=== PATIENT | female | born 1950 | race Caucasian/White ===

== ENCOUNTER 2017-06-04 15:25 | Inpatient (IN) | payer MEDICARE, MEDICAID ==
[~2017-06-04] VITALS: Ht 170.2 cm; Wt 93.2 kg
[~2017-06-04 15:25] MED LIST: ADV50250 IH; ALBU2.5V12 NEB; APIX5TAB3 PO; CARV-50 PO; DIGO125T97 PO; DILT-35 PO; DOCU-28 PO; FURO40TA4 PO; LEVA15HF4 IH; LEVO25TA2 PO; METF500T4 PO; NIT5P TD; POTA8TAB46 PO; PROM25TA14 PO; SPIIN INH; THEO300T22 PO
[2017-06-04] MEDS ORDERED: levoFLOXACIN-Levaquin 500mg/D5 100 ML IV ONE (15:55)
[2017-06-04] MEDS ORDERED: diltiazem 5mg/ml 5ml inj. IV ONE (15:55)
[2017-06-04] MEDS ORDERED: cefTRIAXone 1g/NS 100ml IVPB 100 ML IV ONE (15:55)
[2017-06-04] MEDS ORDERED: magnesium 2GM in 50ml NS 50 ML IV ONE (15:55)
[2017-06-04] MEDS ORDERED: ipratropium/albuterol 3ml nebule NEB ONE (15:55)
[2017-06-04] MEDS ORDERED: normal saline 1000ML IV soln IVB ONE (15:55)
[2017-06-04] MEDS ORDERED: methylPREDNISolone sod succ 125mg/2ml vial IV ONE (15:55)
[2017-06-04] MEDS ORDERED: diltiazem 30mg tablet PO ONE (15:55)
[2017-06-04 16:36] LABS: INR 1.2 INR; PARTIAL THROMBOPLASTIN TIME 21 SECONDS (22-32); PROTHROMBIN TIME 12.4 SECONDS (9.0-12.0)
[2017-06-04 16:38] LABS: ALANINE AMINOTRANSFERASE 19 U/L (12-78); ALBUMIN 2.9 G/DL (3.4-5.0); ALBUMIN/GLOBULIN RATIO 0.8 (1.1-1.5); ALKALINE PHOSPHATASE 58 IU/L (46-116); ANION GAP 8 (8-16); ASPARTATE AMINO TRANSFERASE 17 U/L (10-37); BILIRUBIN,TOTAL 1.3 MG/DL (0.1-1.0); BLOOD UREA NITROGEN 21 MG/DL (7-18); BUN/CREATININE RATIO 15.7 (6.6-38.0); CALCIUM 8.8 MG/DL (8.5-10.1); CHLORIDE 104 MMOL/L (99-107); CREATININE 1.34 MG/DL (0.40-0.90); GLUCOSE 152 MG/DL (70-104); POTASSIUM 4.5 MMOL/L (3.5-5.1); SODIUM 138 MMOL/L (135-145); TOTAL CARBON DIOXIDE 26.1 MMOL/L (24-32); TOTAL PROTEIN 6.5 G/DL (6.4-8.2); eGFR 39 ML/MIN
[2017-06-04 16:46] LABS: MAGNESIUM 1.9 MG/DL (1.5-2.4); TROPONIN I < 0.04 NG/ML (0.0-0.05)
[2017-06-04] MEDS ORDERED: digoxin 250mcg/ml 2ml ampule IV ONE (17:15)
[2017-06-04 17:38] LABS: BASOPHILS % (AUTO) 0.1 % (0-1); EOSINOPHILS % (AUTO) 0 % (0-6); HEMOGLOBIN 12.7 g/dl (12.0-16.0); LYMPHOCYTES # (AUTO) 1.2 X10'3 (1.1-4.8); LYMPHOCYTES % (AUTO) 5.1 % (21-51); MEAN CORPUSCULAR HEMOGLOBIN 28.5 PG (27.0-31.0); MEAN CORPUSCULAR HGB CONC 32.6 % (33.0-36.5); MEAN CORPUSCULAR VOLUME 87.7 FL (78-98); MEAN PLATELET VOLUME 8.1 FL (7.4-10.4); NEUTROPHILS % (AUTO) 90.8 % (42-75); PLATELET COUNT 219 X10'3 (140-440); RED BLOOD COUNT 4.45 X10'6 (4.20-5.60); RED CELL DISTRIBUTION WIDTH 18.2 % (11.5-14.5); WHITE BLOOD COUNT 24.2 X10'3 (4.5-11.0)
[2017-06-04 18:02] LABS: ANISOCYTOSIS 2+; PLATELET ESTIMATE NORMAL; TOTAL CELLS COUNTED 100
[2017-06-04 18:03] LABS: POLYCHROMASIA FEW
[2017-06-04 19:54] LABS: CLARITY,URINE Cloudy (Clear); COLOR,URINE Dark Yellow (Yellow); GLUCOSE, URINE Negative (Neg); KETONES,URINE Negative (Neg); LEUKOCYTE ESTERASE ,URINE Small (Neg); NITRITES, URINE Negative (Neg); OCCULT BLOOD,URINE Small (Neg); PROTEIN,URINE 100 mg/dl (Neg)
[2017-06-04 19:59] LABS: UA COLLECTION TYPE FOLEY CATH
[2017-06-04] MEDS ORDERED: FLUT1DIS7 INH (20:23)
[2017-06-04] MEDS ORDERED: ALBU8HFA PO (20:25)
[2017-06-04] MEDS ORDERED: BENZ-16 PO (20:27)
[2017-06-04] MEDS ORDERED: GABA-532 PO (20:30)
[2017-06-04] MEDS ORDERED: IBUP-1985 PO (20:31)
[2017-06-04] MEDS ORDERED: LOSA50TA3 PO (20:33)
[2017-06-04] MEDS ORDERED: PANT-47 PO (20:35)
[2017-06-04] MEDS ORDERED: RANI-366 PO (20:36)
[2017-06-04] MEDS ORDERED: SPIR25TA3 PO (20:37)
[2017-06-04] MEDS ORDERED: BUDE10.22 INH (20:38)
[2017-06-04] MEDS ORDERED: temazepam 15mg capsule PO PRN (21:00)
[2017-06-04] MEDS ORDERED: benzonatate 100mg capsule PO PRN (21:15)
[2017-06-04] MEDS ORDERED: diphenhydrAMINE 50 mg/ml inj IV PRN (21:20)
[2017-06-04] MEDS ORDERED: bisacodyl 10mg suppository rectal RC PRN (21:20)
[2017-06-04] MEDS ORDERED: glucagon, human recombinant 1mg kit SUBCUT PRN (21:20)
[2017-06-04] MEDS ORDERED: dextrose ORAL solution 15 GM/59 ML bottle PO PRN ×2 (21:20)
[2017-06-04] MEDS ORDERED: MESSAGE TO PHARMACY PO ONE (21:20)
[2017-06-04] MEDS ORDERED: acetaminophen 325mg tablet PO PRN ×2 (21:20)
[2017-06-04] MEDS ORDERED: dextrose 50%-water 50ml dispensing syringe IV PRN ×2 (21:20)
[2017-06-04] MEDS ORDERED: HYDROcodone/acetaminophen 5mg/325mg tablet PO PRN (21:20)
[2017-06-04] MEDS ORDERED: magnesium hydroxide 30ml (MOM) UD suspension PO PRN (21:20)
[2017-06-04] MEDS ORDERED: diphenhydrAMINE 25mg capsule PO PRN (21:20)
[2017-06-04] MEDS ORDERED: metoclopramide 5 mg/ml inj IV PRN (21:20)
[2017-06-04] MEDS ORDERED: HYDROmorphone 1 mg/ml syringe IV PRN ×2 (21:20)
[2017-06-04] MEDS ORDERED: mag hydrox/Alum hydrox/simeth 30ml oral suspension PO PRN (21:20)
[2017-06-04] MEDS ORDERED: ondansetron/PF 4mg/2ml inj IV PRN (21:20)
[2017-06-04] MEDS: pantoprazole 40mg Tablet.DR PO SCH (21:25)
[2017-06-04 21:50] LABS: BACTERIA,URINE 2+ /HPF (Neg); MUCUS STRANDS MODERATE /LPF (Neg); SQUAMOUS EPITHELIAL CELL,UR FEW /LPF (FEW)
[2017-06-04 23:19] VITALS: BP 132/73
[2017-06-04] MEDS: methylPREDNISolone sod succ 125mg/2ml vial IV SCH (23:59)
[2017-06-05 00:08] LABS: HEMOGLOBIN A1C 6.4 % (4.5-6.2)
[2017-06-05] MEDS: albuterol 2.5 MG/3 ML nebule NEB SCH ×4 (00:16→21:05)
[2017-06-05 00:35] LABS: ABG BASE EXCESS -1.4 mmol/L (-2.0-3.0); ABG HCO3 22.6 mmol/L (22.0-26.0); ABG OXYGEN SATURATION 95.3 % (95-98); ABG PCO2 (T) 34.3 mmHg (32.0-45.0); ABG PH (T) 7.432 (7.350-7.450); ABG PO2 (T) 72.2 mmHg (83-108); ALLEN'S TEST Positive; FCOHb 0.2 % (0.5-1.5); FLOW 2 L/min; FMetHb 0.2 % (0.3-1.12); FO2Hb 94.9 % (94-100); PATIENT TEMPERATURE 36.1; TOTAL HEMOGLOBIN 12.7 G/dl (12.0-16.0)
[2017-06-05 06:00] VITALS: BP 106/73
[2017-06-05 06:40] LABS: BASOPHILS % (AUTO) 0 % (0-1); EOSINOPHILS % (AUTO) 0 % (0-6); HEMATOCRIT 35.7 % (35.0-45.0); HEMOGLOBIN 11.6 g/dl (12.0-16.0); LYMPHOCYTES # (AUTO) 0.6 X10'3 (1.1-4.8); LYMPHOCYTES % (AUTO) 3.8 % (21-51); MEAN CORPUSCULAR HEMOGLOBIN 28.4 PG (27.0-31.0); MEAN CORPUSCULAR HGB CONC 32.5 % (33.0-36.5); MEAN CORPUSCULAR VOLUME 87.4 FL (78-98); MEAN PLATELET VOLUME 8.2 FL (7.4-10.4); MONOCYTES # (AUTO) 0.4 X10'3 (0-0.9); MONOCYTES % (AUTO) 2.7 % (2-12); NEUTROPHILS # (AUTO) 13.8 X10'3 (1.8-7.7); NEUTROPHILS % (AUTO) 93.5 % (42-75); PLATELET COUNT 189 X10'3 (140-440); RED BLOOD COUNT 4.09 X10'6 (4.20-5.60); RED CELL DISTRIBUTION WIDTH 17.6 % (11.5-14.5); WHITE BLOOD COUNT 14.8 X10'3 (4.5-11.0)
[2017-06-05 06:52] LABS: ALANINE AMINOTRANSFERASE 23 U/L (12-78); ALBUMIN 2.5 G/DL (3.4-5.0); ALBUMIN/GLOBULIN RATIO 0.7 (1.1-1.5); ALKALINE PHOSPHATASE 54 IU/L (46-116); ANION GAP 8 (8-16); ASPARTATE AMINO TRANSFERASE 17 U/L (10-37); BILIRUBIN,TOTAL 0.7 MG/DL (0.1-1.0); BLOOD UREA NITROGEN 29 MG/DL (7-18); BUN/CREATININE RATIO 19.1 (6.6-38.0); CALCIUM 9.3 MG/DL (8.5-10.1); CHLORIDE 104 MMOL/L (99-107); CREATININE 1.52 MG/DL (0.40-0.90); GLUCOSE 197 MG/DL (70-104); POTASSIUM 4.4 MMOL/L (3.5-5.1); SODIUM 137 MMOL/L (135-145); TOTAL CARBON DIOXIDE 24.8 MMOL/L (24-32); TOTAL PROTEIN 6.2 G/DL (6.4-8.2); eGFR 34 ML/MIN
[2017-06-05] MEDS: losartan 50mg tablet PO SCH (07:39)
[2017-06-05] MEDS: levoTHYROXINE 25mcg tablet PO SCH (07:50)
[2017-06-05] MEDS: gabapentin 300mg capsule PO SCH ×4 (07:50→23:58)
[2017-06-05] MEDS: digoxin 125mcg (0.125mg) tablet PO SCH (07:51)
[2017-06-05] MEDS: famotidine 20mg tablet PO SCH ×3 (07:51→22:18)
[2017-06-05] MEDS: docusate sod 100mg capsule PO SCH ×2 (07:52→22:18)
[2017-06-05] MEDS: diltiazem CD 120mg capsule (once-daily) PO SCH (07:52)
[2017-06-05] MEDS: carVEDilol 12.5mg tablet PO SCH ×3 (07:52→22:00)
[2017-06-05] MEDS: pantoprazole 40mg Tablet.DR PO SCH ×2 (07:53→22:34)
[2017-06-05] MEDS: furosemide 10 MG/1 ML 10ml inj IV SCH ×2 (07:54→22:00)
[2017-06-05] MEDS: methylPREDNISolone sod succ 125mg/2ml vial IV SCH ×3 (07:55→23:57)
[2017-06-05] MEDS: apixaban 5mg tablet PO SCH ×3 (07:57→22:18)
[2017-06-05] MEDS: nitroGLYCERIN 0.2mg/hour patch TD SCH (08:00)
[2017-06-05] MEDS ORDERED: non-formulary drug (Ranitidine Hcl (Zantac) 150 MG) PO SCH (08:00)
[2017-06-05 10:00] VITALS: BP 111/65
[2017-06-05] MEDS: insulin Lispro (HumaLOG) vial - multi-dose SQ SCH ×3 (10:00→19:57)
[2017-06-05] MEDS ORDERED: pneumococcal 23-VAL P-sac vacc 25 mcg/0.5ml vial IMVAC ONE (11:10)
[2017-06-05] MEDS: HYDROcodone/acetaminophen 10/325mg tab PO PRN (14:59)
[2017-06-05 18:00] VITALS: BP 83/57
[2017-06-05] MEDS: Insulin Detemir pen SQ SCH (21:00)
[2017-06-05 22:00] VITALS: BP 101/54
[2017-06-06 05:27] LABS: BASOPHILS % (AUTO) 0 % (0-1); EOSINOPHILS # (AUTO) 0.2 X10'3 (0-0.9); EOSINOPHILS % (AUTO) 1.2 % (0-6); HEMATOCRIT 35.3 % (35.0-45.0); HEMOGLOBIN 11.3 g/dl (12.0-16.0); LYMPHOCYTES # (AUTO) 0.6 X10'3 (1.1-4.8); LYMPHOCYTES % (AUTO) 4.4 % (21-51); MEAN CORPUSCULAR HEMOGLOBIN 28.1 PG (27.0-31.0); MEAN CORPUSCULAR HGB CONC 31.9 % (33.0-36.5); MEAN CORPUSCULAR VOLUME 88.1 FL (78-98); MEAN PLATELET VOLUME 8.5 FL (7.4-10.4); MONOCYTES # (AUTO) 0.3 X10'3 (0-0.9); MONOCYTES % (AUTO) 2.2 % (2-12); NEUTROPHILS # (AUTO) 12.9 X10'3 (1.8-7.7); NEUTROPHILS % (AUTO) 92.2 % (42-75); PLATELET COUNT 179 X10'3 (140-440); RED CELL DISTRIBUTION WIDTH 17.8 % (11.5-14.5)
[2017-06-06 05:45] LABS: ALANINE AMINOTRANSFERASE 84 U/L (12-78); ALBUMIN 2.6 G/DL (3.4-5.0); ALBUMIN/GLOBULIN RATIO 0.7 (1.1-1.5); ALKALINE PHOSPHATASE 56 IU/L (46-116); ANION GAP 12 (8-16); ASPARTATE AMINO TRANSFERASE 59 U/L (10-37); BILIRUBIN,TOTAL 0.5 MG/DL (0.1-1.0); BLOOD UREA NITROGEN 58 MG/DL (7-18); BUN/CREATININE RATIO 29.7 (6.6-38.0); CALCIUM 9.4 MG/DL (8.5-10.1); CHLORIDE 98 MMOL/L (99-107); CREATININE 1.95 MG/DL (0.40-0.90); GLUCOSE 240 MG/DL (70-104); POTASSIUM 4.4 MMOL/L (3.5-5.1); SODIUM 133 MMOL/L (135-145); TOTAL CARBON DIOXIDE 22.7 MMOL/L (24-32); TOTAL PROTEIN 6.2 G/DL (6.4-8.2); eGFR 25 ML/MIN
[2017-06-06] MEDS: levoFLOXACIN-Levaquin 750MG/D5 150 ML IV SCH (08:27)
[2017-06-06] MEDS: methylPREDNISolone sod succ 125mg/2ml vial IV SCH ×3 (08:30→23:52)
[2017-06-06] MEDS: gabapentin 300mg capsule PO SCH ×3 (08:30→23:52)
[2017-06-06] MEDS: docusate sod 100mg capsule PO SCH ×2 (08:30→21:08)
[2017-06-06] MEDS: pantoprazole 40mg Tablet.DR PO SCH (08:30)
[2017-06-06] MEDS: famotidine 20mg tablet PO SCH (08:30)
[2017-06-06] MEDS: levoTHYROXINE 25mcg tablet PO SCH (08:30)
[2017-06-06] MEDS: apixaban 5mg tablet PO SCH ×2 (08:31→21:08)
[2017-06-06] MEDS: digoxin 125mcg (0.125mg) tablet PO SCH (08:31)
[2017-06-06] MEDS: furosemide 10 MG/1 ML 10ml inj IV SCH ×2 (08:32→20:00)
[2017-06-06] MEDS: albuterol 2.5 MG/3 ML nebule NEB SCH ×3 (08:49→21:00)
[2017-06-06] MEDS: insulin Lispro (HumaLOG) vial - multi-dose SQ SCH ×3 (09:29→19:19)
[2017-06-06] MEDS: diltiazem CD 120mg capsule (once-daily) PO SCH (10:38)
[2017-06-06] MEDS: carVEDilol 12.5mg tablet PO SCH ×2 (10:38→20:00)
[2017-06-06] MEDS: losartan 50mg tablet PO SCH (10:38)
[2017-06-06] MEDS: nitroGLYCERIN 0.2mg/hour patch TD SCH (10:39)
[2017-06-06 11:00] VITALS: BP 131/79
[2017-06-06] MEDS ORDERED: codeine/proMETHazine 5ml UD syrup PO ONE (13:45)
[2017-06-06] MEDS: lactobacillus rhamnosus 10,000 MMU CELLS/CAPSULE PO SCH (17:31)
[2017-06-06 18:00] VITALS: BP 80/63
[2017-06-06] MEDS: codeine/proMETHazine 5ml UD syrup PO PRN (19:20)
[2017-06-06] MEDS: ipratropium/albuterol 3ml nebule NEB SCH ×2 (19:45→23:14)
[2017-06-06 21:00] VITALS: BP 83/46
[2017-06-06 21:01] VITALS: BP 94/53
[2017-06-06] MEDS: Insulin Detemir pen SQ SCH (21:11)
[2017-06-06 22:00] VITALS: BP 91/63
[2017-06-07] MEDS: ipratropium/albuterol 3ml nebule NEB SCH ×6 (03:31→23:32)
[2017-06-07 06:00] VITALS: BP 100/64
[2017-06-07 06:57] LABS: BASOPHILS % (AUTO) 0.1 % (0-1); EOSINOPHILS # (AUTO) 0.2 X10'3 (0-0.9); EOSINOPHILS % (AUTO) 1.4 % (0-6); HEMATOCRIT 33.7 % (35.0-45.0); HEMOGLOBIN 10.9 g/dl (12.0-16.0); LYMPHOCYTES # (AUTO) 0.3 X10'3 (1.1-4.8); MEAN CORPUSCULAR HEMOGLOBIN 28.1 PG (27.0-31.0); MEAN CORPUSCULAR HGB CONC 32.3 % (33.0-36.5); MEAN CORPUSCULAR VOLUME 87.1 FL (78-98); MEAN PLATELET VOLUME 8.7 FL (7.4-10.4); MONOCYTES # (AUTO) 0.2 X10'3 (0-0.9); MONOCYTES % (AUTO) 1.4 % (2-12); NEUTROPHILS % (AUTO) 94.1 % (42-75); PLATELET COUNT 205 X10'3 (140-440); RED BLOOD COUNT 3.87 X10'6 (4.20-5.60); RED CELL DISTRIBUTION WIDTH 17.6 % (11.5-14.5); WHITE BLOOD COUNT 11.7 X10'3 (4.5-11.0)
[2017-06-07 07:38] LABS: ALANINE AMINOTRANSFERASE 68 U/L (12-78); ALBUMIN 2.4 G/DL (3.4-5.0); ALBUMIN/GLOBULIN RATIO 0.7 (1.1-1.5); ALKALINE PHOSPHATASE 51 IU/L (46-116); ANION GAP 11 (8-16); ASPARTATE AMINO TRANSFERASE 19 U/L (10-37); BILIRUBIN,TOTAL 0.4 MG/DL (0.1-1.0); BLOOD UREA NITROGEN 71 MG/DL (7-18); BUN/CREATININE RATIO 38.8 (6.6-38.0); CALCIUM 9.1 MG/DL (8.5-10.1); CHLORIDE 100 MMOL/L (99-107); CREATININE 1.83 MG/DL (0.40-0.90); GLUCOSE 189 MG/DL (70-104); POTASSIUM 4.5 MMOL/L (3.5-5.1); SODIUM 134 MMOL/L (135-145); TOTAL CARBON DIOXIDE 23.4 MMOL/L (24-32); TOTAL PROTEIN 5.9 G/DL (6.4-8.2); eGFR 27 ML/MIN
[2017-06-07] MEDS: levoTHYROXINE 25mcg tablet PO SCH (07:42)
[2017-06-07] MEDS: gabapentin 300mg capsule PO SCH ×2 (07:42→17:11)
[2017-06-07] MEDS: docusate sod 100mg capsule PO SCH ×2 (07:42→19:55)
[2017-06-07] MEDS: lactobacillus rhamnosus 10,000 MMU CELLS/CAPSULE PO SCH ×2 (07:42→17:11)
[2017-06-07] MEDS: apixaban 5mg tablet PO SCH ×2 (07:42→19:55)
[2017-06-07] MEDS: methylPREDNISolone sod succ 125mg/2ml vial IV SCH ×2 (07:42→17:10)
[2017-06-07] MEDS: azithromycin/NS 500mg/250ml 250 ML IV SCH (07:42)
[2017-06-07] MEDS: digoxin 125mcg (0.125mg) tablet PO SCH (07:43)
[2017-06-07] MEDS: nitroGLYCERIN 0.2mg/hour patch TD SCH (11:22)
[2017-06-07] MEDS: diltiazem CD 120mg capsule (once-daily) PO SCH (11:23)
[2017-06-07] MEDS: furosemide 10 MG/1 ML 10ml inj IV SCH ×2 (11:23→19:57)
[2017-06-07] MEDS: carVEDilol 12.5mg tablet PO SCH ×2 (11:23→19:55)
[2017-06-07] MEDS: losartan 50mg tablet PO SCH (11:23)
[2017-06-07 11:25] VITALS: BP 100/61
[2017-06-07] MEDS: albuterol 2.5 MG/3 ML nebule NEB SCH (12:50)
[2017-06-07] MEDS: insulin Lispro (HumaLOG) vial - multi-dose SQ SCH ×2 (13:35→18:56)
[2017-06-07 18:30] VITALS: BP 110/58
[2017-06-07 19:45] VITALS: BP 106/57
[2017-06-07] MEDS: codeine/proMETHazine 5ml UD syrup PO PRN (19:57)
[2017-06-07] MEDS: Insulin Detemir pen SQ SCH (21:12)
[2017-06-07 22:00] VITALS: BP 106/72
[2017-06-08] MEDS: methylPREDNISolone sod succ 125mg/2ml vial IV SCH ×3 (00:02→20:15)
[2017-06-08] MEDS: gabapentin 300mg capsule PO SCH ×4 (00:02→23:01)
[2017-06-08] MEDS: ipratropium/albuterol 3ml nebule NEB SCH ×5 (03:39→20:12)
[2017-06-08 05:00] VITALS: BP 103/62
[2017-06-08 07:17] LABS: BASOPHILS % (AUTO) 0 % (0-1); EOSINOPHILS # (AUTO) 0.1 X10'3 (0-0.9); EOSINOPHILS % (AUTO) 1.1 % (0-6); HEMATOCRIT 37.3 % (35.0-45.0); HEMOGLOBIN 11.9 g/dl (12.0-16.0); LYMPHOCYTES # (AUTO) 0.4 X10'3 (1.1-4.8); LYMPHOCYTES % (AUTO) 4.3 % (21-51); MEAN CORPUSCULAR VOLUME 87.5 FL (78-98); MEAN PLATELET VOLUME 8.5 FL (7.4-10.4); MONOCYTES # (AUTO) 0.2 X10'3 (0-0.9); MONOCYTES % (AUTO) 1.8 % (2-12); NEUTROPHILS # (AUTO) 8.8 X10'3 (1.8-7.7); NEUTROPHILS % (AUTO) 92.8 % (42-75); PLATELET COUNT 224 X10'3 (140-440); RED BLOOD COUNT 4.26 X10'6 (4.20-5.60); RED CELL DISTRIBUTION WIDTH 17.5 % (11.5-14.5); WHITE BLOOD COUNT 9.5 X10'3 (4.5-11.0)
[2017-06-08 07:41] LABS: ALANINE AMINOTRANSFERASE 61 U/L (12-78); ALBUMIN 2.6 G/DL (3.4-5.0); ALBUMIN/GLOBULIN RATIO 0.7 (1.1-1.5); ALKALINE PHOSPHATASE 51 IU/L (46-116); ANION GAP 6 (8-16); ASPARTATE AMINO TRANSFERASE 14 U/L (10-37); BILIRUBIN,TOTAL 0.3 MG/DL (0.1-1.0); BLOOD UREA NITROGEN 68 MG/DL (7-18); BUN/CREATININE RATIO 42.5 (6.6-38.0); CALCIUM 9.2 MG/DL (8.5-10.1); CHLORIDE 102 MMOL/L (99-107); GLUCOSE 165 MG/DL (70-104); POTASSIUM 4.5 MMOL/L (3.5-5.1); SODIUM 137 MMOL/L (135-145); TOTAL PROTEIN 6.1 G/DL (6.4-8.2); eGFR 32 ML/MIN
[2017-06-08] MEDS: azithromycin/NS 500mg/250ml 250 ML IV SCH (08:00)
[2017-06-08] MEDS: insulin Lispro (HumaLOG) vial - multi-dose SQ SCH ×3 (09:05→19:04)
[2017-06-08] MEDS: levoTHYROXINE 25mcg tablet PO SCH (09:09)
[2017-06-08] MEDS: lactobacillus rhamnosus 10,000 MMU CELLS/CAPSULE PO SCH ×2 (09:09→17:11)
[2017-06-08] MEDS: losartan 50mg tablet PO SCH (09:09)
[2017-06-08] MEDS: diltiazem CD 120mg capsule (once-daily) PO SCH (09:10)
[2017-06-08] MEDS: docusate sod 100mg capsule PO SCH ×2 (09:10→20:15)
[2017-06-08] MEDS: carVEDilol 12.5mg tablet PO SCH ×2 (09:10→20:15)
[2017-06-08] MEDS: digoxin 125mcg (0.125mg) tablet PO SCH (09:10)
[2017-06-08] MEDS: apixaban 5mg tablet PO SCH ×2 (09:10→20:15)
[2017-06-08] MEDS: nitroGLYCERIN 0.2mg/hour patch TD SCH (09:11)
[2017-06-08] MEDS: furosemide 10 MG/1 ML 10ml inj IV SCH ×2 (09:12→20:17)
[2017-06-08 10:00] VITALS: BP 115/65
[2017-06-08] MEDS: levoFLOXACIN-Levaquin 750MG/D5 150 ML IV SCH (10:22)
[2017-06-08] MEDS: HYDROcodone/acetaminophen 10/325mg tab PO PRN ×2 (14:32→21:06)
[2017-06-08 18:30] VITALS: BP 99/58
[2017-06-08 20:14] VITALS: BP 105/58
[2017-06-08] MEDS: Insulin Detemir pen SQ SCH (21:10)
[2017-06-08 22:00] VITALS: BP 92/54
[2017-06-08] MEDS: codeine/proMETHazine 5ml UD syrup PO PRN (22:59)
[2017-06-09 02:18] LABS: CLARITY,URINE Clear (Clear); GLUCOSE, URINE Negative (Neg); KETONES,URINE Negative (Neg); LEUKOCYTE ESTERASE ,URINE Negative (Neg); NITRITES, URINE Negative (Neg); OCCULT BLOOD,URINE Negative (Neg); PROTEIN,URINE Negative (Neg); UROBILINOGEN,URINE 0.2 E.U/dL (0.2-1.0)
[2017-06-09 02:27] LABS: COLOR,URINE STRAW (Yellow); UA COLLECTION TYPE CLN CATCH MIDSTREAM
[2017-06-09] MEDS: ipratropium/albuterol 3ml nebule NEB SCH ×4 (02:50→10:45)
[2017-06-09 05:00] VITALS: BP 104/50
[2017-06-09 07:04] LABS: BASOPHILS % (AUTO) 0.1 % (0-1); EOSINOPHILS % (AUTO) 0 % (0-6); HEMATOCRIT 37.8 % (35.0-45.0); HEMOGLOBIN 12.1 g/dl (12.0-16.0); LYMPHOCYTES # (AUTO) 0.4 X10'3 (1.1-4.8); LYMPHOCYTES % (AUTO) 4.5 % (21-51); MEAN CORPUSCULAR HEMOGLOBIN 27.9 PG (27.0-31.0); MEAN CORPUSCULAR VOLUME 87.2 FL (78-98); MEAN PLATELET VOLUME 7.9 FL (7.4-10.4); MONOCYTES # (AUTO) 0.2 X10'3 (0-0.9); MONOCYTES % (AUTO) 1.7 % (2-12); NEUTROPHILS # (AUTO) 9.2 X10'3 (1.8-7.7); NEUTROPHILS % (AUTO) 93.7 % (42-75); PLATELET COUNT 236 X10'3 (140-440); RED BLOOD COUNT 4.33 X10'6 (4.20-5.60); RED CELL DISTRIBUTION WIDTH 17.4 % (11.5-14.5); WHITE BLOOD COUNT 9.8 X10'3 (4.5-11.0)
[2017-06-09 07:49] LABS: ALANINE AMINOTRANSFERASE 49 U/L (12-78); ALBUMIN 2.5 G/DL (3.4-5.0); ALBUMIN/GLOBULIN RATIO 0.7 (1.1-1.5); ALKALINE PHOSPHATASE 48 IU/L (46-116); ANION GAP 4 (8-16); ASPARTATE AMINO TRANSFERASE 16 U/L (10-37); BILIRUBIN,TOTAL 0.3 MG/DL (0.1-1.0); BLOOD UREA NITROGEN 62 MG/DL (7-18); BUN/CREATININE RATIO 46.6 (6.6-38.0); CALCIUM 8.8 MG/DL (8.5-10.1); CHLORIDE 101 MMOL/L (99-107); CREATININE 1.33 MG/DL (0.40-0.90); GLUCOSE 126 MG/DL (70-104); POTASSIUM 4.1 MMOL/L (3.5-5.1); SODIUM 137 MMOL/L (135-145); TOTAL PROTEIN 5.9 G/DL (6.4-8.2); eGFR 40 ML/MIN
[2017-06-09] MEDS: methylPREDNISolone sod succ 125mg/2ml vial IV SCH ×2 (07:55→12:35)
[2017-06-09] MEDS: docusate sod 100mg capsule PO SCH (07:56)
[2017-06-09] MEDS: apixaban 5mg tablet PO SCH (07:56)
[2017-06-09] MEDS: levoTHYROXINE 25mcg tablet PO SCH (07:56)
[2017-06-09] MEDS: azithromycin/NS 500mg/250ml 250 ML IV SCH (07:56)
[2017-06-09] MEDS: lactobacillus rhamnosus 10,000 MMU CELLS/CAPSULE PO SCH (07:56)
[2017-06-09] MEDS: furosemide 10 MG/1 ML 10ml inj IV SCH (07:56)
[2017-06-09] MEDS: digoxin 125mcg (0.125mg) tablet PO SCH (07:57)
[2017-06-09] MEDS: HYDROcodone/acetaminophen 10/325mg tab PO PRN (07:57)
[2017-06-09] MEDS: gabapentin 300mg capsule PO SCH (07:57)
[2017-06-09] MEDS: codeine/proMETHazine 5ml UD syrup PO PRN (07:57)
[2017-06-09] MEDS: diltiazem CD 120mg capsule (once-daily) PO SCH (07:58)
[2017-06-09] MEDS: carVEDilol 12.5mg tablet PO SCH (08:00)
[2017-06-09] MEDS: nitroGLYCERIN 0.2mg/hour patch TD SCH (08:00)
[2017-06-09] MEDS: losartan 50mg tablet PO SCH (08:00)
[2017-06-09] MEDS: insulin Lispro (HumaLOG) vial - multi-dose SQ SCH ×2 (09:22→13:41)
[2017-06-09 10:00] VITALS: BP 126/71
== END 2017-06-09 14:05 | DRG 871 ==
LOC: ER 15:25 → ED HOLD 21:17 → ORTHO 4S 22:37
PROVIDERS: ADMIT Family Medicine; ATTEND Family Medicine
DX: A41.9 Sepsis, unspecified organism (principal); I50.23 Acute on chronic systolic (congestive) heart failure; N17.9 Acute kidney failure, unspecified; I48.91 Unspecified atrial fibrillation; I11.0 Hypertensive heart disease with heart failure; J18.1 Lobar pneumonia, unspecified organism; J44.0 Chronic obstructive pulmonary disease with (acute) lower respiratory infection; J44.1 Chronic obstructive pulmonary disease with (acute) exacerbation; N39.0 Urinary tract infection, site not specified; E86.0 Dehydration; E11.9 Type 2 diabetes mellitus without complications; E03.9 Hypothyroidism, unspecified; I25.10 Atherosclerotic heart disease of native coronary artery without angina pectoris; E78.00 Pure hypercholesterolemia, unspecified; R09.02 Hypoxemia; Z90.49 Acquired absence of other specified parts of digestive tract; Z90.710 Acquired absence of both cervix and uterus; Z95.0 Presence of cardiac pacemaker; Z88.6 Allergy status to analgesic agent; Z88.0 Allergy status to penicillin; Z88.8 Allergy status to other drugs, medicaments and biological substances; Z91.018 Allergy to other foods; Z91.048 Other nonmedicinal substance allergy status; Z79.899 Other long term (current) drug therapy; Z28.21 Immunization not carried out because of patient refusal; Z87.891 Personal history of nicotine dependence
CPT/HCPCS: 36415; 36600; 71010; 71250; 80053; 80162; 81001; 81003; 82803; 82948; 83036; 83605; 83735; 83880; 84145; 84484; 85018; 85025; 85610; 85730; 87070; 87088; 93005; 94640; 94760; 96365; 96366; 96368; 96375; 97110; 97116; 97162; 99285; J0456; J0696; J1160; J1940; J1956; J2270; J2405; J2930; J3475; J3490; J7030

== ENCOUNTER 2018-04-25 19:25 | Inpatient (IN) | payer MEDICARE, MEDICAID ==
[~2018-04-25] VITALS: Ht 160 cm; Wt 104.0 kg
[~2018-04-25 19:25] MED LIST changes: -ADV50250 IH; -ALBU2.5V12 NEB; -CARV-50 PO; -DIGO125T97 PO; -DILT-35 PO; +DILT120C51 PO; -DOCU-28 PO; +DOCU100T PO; +GABA-532 PO; +HYDR-4383 PO; -LEVA15HF4 IH; -LEVO25TA2 PO; +LEVO50TA8 PO; +LISI2.5T2 PO; +LORA0.5T PO; +METF500T PO; -METF500T4 PO; +PANT40TA4 PO; +POTA10TA19 PO; -POTA8TAB46 PO; -PROM25TA14 PO; -SPIIN INH; +SPIR25TA5 PO; +THEO100C PO; -THEO300T22 PO
[2018-04-25] MEDS ORDERED: ipratropium/albuterol 3ml nebule NEB ONE (19:35)
[2018-04-25] MEDS ORDERED: albuterol 2.5 MG/3 ML nebule CONTNEB PRN (19:35)
[2018-04-25] MEDS ORDERED: methylPREDNISolone sod succ 125mg/2ml vial IV ONE (19:35)
[2018-04-25] MEDS ORDERED: normal saline 1000ML IV soln IVB ONE (19:35)
[2018-04-25] MEDS ORDERED: albuterol 2.5 MG/3 ML nebule ONE (19:37)
[2018-04-25 19:47] LABS: BASOPHILS % (AUTO) 0.4 % (0-1); EOSINOPHILS # (AUTO) 0.1 X10'3 (0-0.9); EOSINOPHILS % (AUTO) 1.6 % (0-6); HEMATOCRIT 38.6 % (35.0-45.0); HEMOGLOBIN 12.2 g/dl (12.0-16.0); LYMPHOCYTES # (AUTO) 1.7 X10'3 (1.1-4.8); LYMPHOCYTES % (AUTO) 30.6 % (21-51); MEAN CORPUSCULAR HEMOGLOBIN 25.8 PG (27.0-31.0); MEAN CORPUSCULAR HGB CONC 31.6 % (33.0-36.5); MEAN CORPUSCULAR VOLUME 81.8 FL (78-98); MEAN PLATELET VOLUME 7.7 FL (7.4-10.4); MONOCYTES # (AUTO) 0.6 X10'3 (0-0.9); MONOCYTES % (AUTO) 10.9 % (2-12); NEUTROPHILS # (AUTO) 3.1 X10'3 (1.8-7.7); NEUTROPHILS % (AUTO) 56.5 % (42-75); PLATELET COUNT 236 X10'3 (140-440); RED BLOOD COUNT 4.72 X10'6 (4.20-5.60); RED CELL DISTRIBUTION WIDTH 17.5 % (11.5-14.5); WHITE BLOOD COUNT 5.4 X10'3 (4.5-11.0)
[2018-04-25] MEDS ORDERED: magnesium 2GM in 50ml NS 50 ML IV ONE (19:55)
[2018-04-25 20:14] LABS: ALANINE AMINOTRANSFERASE 23 U/L (12-78); ALBUMIN 3.5 G/DL (3.4-5.0); ALBUMIN/GLOBULIN RATIO 0.9 (1.1-1.5); ALKALINE PHOSPHATASE 100 IU/L (46-116); ANION GAP 6 (8-16); ASPARTATE AMINO TRANSFERASE 18 U/L (10-37); BILIRUBIN,TOTAL 0.4 MG/DL (0.1-1.0); BLOOD UREA NITROGEN 22 MG/DL (7-18); CALCIUM 8.8 MG/DL (8.5-10.1); CHLORIDE 105 MMOL/L (99-107); CREATININE 1.16 MG/DL (0.40-0.90); GLUCOSE 111 MG/DL (70-104); POTASSIUM 4.2 MMOL/L (3.5-5.1); SODIUM 142 MMOL/L (135-145); TOTAL PROTEIN 7.4 G/DL (6.4-8.2); eGFR 46 ML/MIN
[2018-04-25] MEDS ORDERED: temazepam 15mg capsule PO PRN (21:00)
[2018-04-25] MEDS ORDERED: levoFLOXACIN-Levaquin 750MG/D5 150 ML IV STA (21:03)
[2018-04-25] MEDS ORDERED: furosemide 10 MG/1 ML 10ml inj IV ONE (21:05)
[2018-04-25] MEDS ORDERED: LORazepam 0.5 MG tablet PO PRN (21:05)
[2018-04-25 21:15] LABS: ABG BASE EXCESS 1.2 mmol/L (-2.0-3.0); ABG OXYGEN SATURATION 98.9 % (95-98); ABG PCO2 (T) 42.3 mmHg (32.0-45.0); ABG PH (T) 7.407 (7.350-7.450); ABG PO2 (T) 159.8 mmHg (83-108); FCOHb 0.3 % (0.5-1.5); FLOW 8 L/min; FMetHb 0.2 % (0.3-1.12); FO2Hb 98.4 % (94-100); PATIENT TEMPERATURE 37.2; TOTAL HEMOGLOBIN 12.5 G/dl (12.0-16.0)
[2018-04-25] MEDS ORDERED: morphine 2 MG/ML inj. syringe IV PRN (21:25)
[2018-04-25] MEDS ORDERED: metoclopramide 5 mg/ml inj IV PRN (21:25)
[2018-04-25] MEDS ORDERED: HYDROcodone/acetaminophen 10/325mg tab PO PRN (21:25)
[2018-04-25] MEDS ORDERED: bisacodyl 10mg suppository rectal RC PRN (21:25)
[2018-04-25] MEDS ORDERED: HYDROmorphone 1 mg/ml syringe IV PRN (21:25)
[2018-04-25] MEDS ORDERED: acetaminophen 325mg tablet PO PRN ×2 (21:25)
[2018-04-25] MEDS ORDERED: magnesium hydroxide 30ml (MOM) UD suspension PO PRN (21:25)
[2018-04-25] MEDS ORDERED: acetaminophen 650mg rectal suppository RC PRN (21:25)
[2018-04-25] MEDS ORDERED: mag hydrox/Alum hydrox/simeth 30ml oral suspension PO PRN (21:25)
[2018-04-25] MEDS ORDERED: diphenhydrAMINE 50 mg/ml inj IV PRN (21:25)
[2018-04-25] MEDS ORDERED: glucagon, human recombinant 1mg kit SUBCUT PRN (21:35)
[2018-04-25] MEDS ORDERED: MESSAGE TO PHARMACY PO ONE (21:35)
[2018-04-25] MEDS ORDERED: dextrose ORAL solution 15 GM/59 ML bottle PO PRN ×2 (21:35)
[2018-04-25] MEDS ORDERED: dextrose 50%-water 50ml dispensing syringe IV PRN ×2 (21:35)
[2018-04-25 21:48] LABS: MAGNESIUM 2.2 MG/DL (1.5-2.4); PHOSPHORUS 4.2 MG/DL (2.3-4.5)
[2018-04-25 21:49] LABS: HEMOGLOBIN A1C 5.8 % (4.5-6.2)
[2018-04-25 23:40] VITALS: BP 124/81
[2018-04-26 03:00] LABS: ALANINE AMINOTRANSFERASE 21 U/L (12-78); ALBUMIN 3.1 G/DL (3.4-5.0); ALBUMIN/GLOBULIN RATIO 0.8 (1.1-1.5); ALKALINE PHOSPHATASE 96 IU/L (46-116); ANION GAP 11 (8-16); BILIRUBIN,TOTAL 0.3 MG/DL (0.1-1.0); BLOOD UREA NITROGEN 21 MG/DL (7-18); BUN/CREATININE RATIO 14.9 (6.6-38.0); CALCIUM 8.5 MG/DL (8.5-10.1); CHLORIDE 102 MMOL/L (99-107); CREATININE 1.41 MG/DL (0.40-0.90); GLUCOSE 264 MG/DL (70-104); SODIUM 138 MMOL/L (135-145); TOTAL CARBON DIOXIDE 25.5 MMOL/L (24-32); eGFR 37 ML/MIN
[2018-04-26 03:04] LABS: ASPARTATE AMINO TRANSFERASE 27 U/L (10-37); POTASSIUM 3.6 MMOL/L (3.5-5.1)
[2018-04-26 03:08] LABS: BASOPHILS % (AUTO) 0 % (0-1); EOSINOPHILS % (AUTO) 0 % (0-6); HEMATOCRIT 34.9 % (35.0-45.0); HEMOGLOBIN 11.2 g/dl (12.0-16.0); LYMPHOCYTES # (AUTO) 0.2 X10'3 (1.1-4.8); LYMPHOCYTES % (AUTO) 4.9 % (21-51); MEAN CORPUSCULAR HEMOGLOBIN 26.3 PG (27.0-31.0); MEAN CORPUSCULAR HGB CONC 32.3 % (33.0-36.5); MEAN CORPUSCULAR VOLUME 81.6 FL (78-98); MEAN PLATELET VOLUME 8.1 FL (7.4-10.4); NEUTROPHILS # (AUTO) 3.9 X10'3 (1.8-7.7); NEUTROPHILS % (AUTO) 94.1 % (42-75); PLATELET COUNT 195 X10'3 (140-440); RED BLOOD COUNT 4.27 X10'6 (4.20-5.60); RED CELL DISTRIBUTION WIDTH 16.8 % (11.5-14.5); WHITE BLOOD COUNT 4.2 X10'3 (4.5-11.0)
[2018-04-26 06:18] LABS: INR 1.1 INR; PARTIAL THROMBOPLASTIN TIME 27 SECONDS (22-32)
[2018-04-26 07:00] VITALS: BP 112/60
[2018-04-26] MEDS ORDERED: levoFLOXACIN-Levaquin 500mg/D5 100 ML IV SCH (08:00)
[2018-04-26] MEDS ORDERED: DILTIAZEM HCL PO SCH (08:00)
[2018-04-26] MEDS ORDERED: non-formulary drug (Levothyroxine Sodium 1 TAB) PO SCH (08:00)
[2018-04-26] MEDS: spironolactone 25 MG tablet PO SCH (08:08)
[2018-04-26] MEDS: docusate sod 100mg capsule PO SCH ×2 (08:09→19:36)
[2018-04-26] MEDS: gabapentin 300mg capsule PO SCH ×2 (08:09→19:36)
[2018-04-26] MEDS: apixaban 5mg tablet PO SCH ×2 (08:09→19:35)
[2018-04-26] MEDS: pantoprazole 40mg Tablet.DR PO SCH ×2 (08:09→17:03)
[2018-04-26] MEDS: diltiazem CD 180mg cap (once-daily) PO SCH (08:10)
[2018-04-26] MEDS: nitroGLYCERIN 0.2mg/hour patch TD SCH (08:13)
[2018-04-26] MEDS: methylPREDNISolone sod succ 125mg/2ml vial IV SCH ×2 (08:13→19:39)
[2018-04-26] MEDS: furosemide 10 MG/1 ML 10ml inj IV SCH ×2 (08:16→19:37)
[2018-04-26] MEDS: levoTHYROXINE 25mcg tablet PO SCH (08:26)
[2018-04-26] MEDS ORDERED: HYDROcodone/acetaminophen 5mg/325mg tablet PO PRN (08:35)
[2018-04-26] MEDS: ipratropium/albuterol 3ml nebule NEB PRN ×3 (09:26→19:03)
[2018-04-26 13:25] VITALS: BP 102/61
[2018-04-26 18:00] VITALS: BP 112/54
[2018-04-26] MEDS: insulin Lispro (HumaLOG) vial - multi-dose SQ SCH (19:32)
[2018-04-26] MEDS: potassium chloride 8mEq ER tablet PO SCH (19:35)
[2018-04-26] MEDS ORDERED: metFORMIN 500mg tablet PO SCH (20:00)
[2018-04-26] MEDS: lisinopril 2.5mg tablet PO SCH (21:25)
[2018-04-27] VITALS: BP 103/52
[2018-04-27 05:43] LABS: ALANINE AMINOTRANSFERASE 17 U/L (12-78); ALBUMIN/GLOBULIN RATIO 0.8 (1.1-1.5); ALKALINE PHOSPHATASE 87 IU/L (46-116); ANION GAP 10 (8-16); ASPARTATE AMINO TRANSFERASE 14 U/L (10-37); BILIRUBIN,TOTAL 0.2 MG/DL (0.1-1.0); BLOOD UREA NITROGEN 27 MG/DL (7-18); BUN/CREATININE RATIO 22.5 (6.6-38.0); CALCIUM 8.6 MG/DL (8.5-10.1); CHLORIDE 102 MMOL/L (99-107); GLUCOSE 197 MG/DL (70-104); POTASSIUM 3.6 MMOL/L (3.5-5.1); SODIUM 140 MMOL/L (135-145); TOTAL CARBON DIOXIDE 27.9 MMOL/L (24-32); TOTAL PROTEIN 6.6 G/DL (6.4-8.2); eGFR 44 ML/MIN
[2018-04-27 05:55] LABS: BASOPHILS % (AUTO) 0 % (0-1); EOSINOPHILS # (AUTO) 0.1 X10'3 (0-0.9); EOSINOPHILS % (AUTO) 0.7 % (0-6); HEMOGLOBIN 10.9 g/dl (12.0-16.0); LYMPHOCYTES # (AUTO) 0.4 X10'3 (1.1-4.8); LYMPHOCYTES % (AUTO) 4.6 % (21-51); MEAN CORPUSCULAR HEMOGLOBIN 26.4 PG (27.0-31.0); MEAN CORPUSCULAR HGB CONC 32.2 % (33.0-36.5); MEAN CORPUSCULAR VOLUME 81.9 FL (78-98); MEAN PLATELET VOLUME 7.9 FL (7.4-10.4); MONOCYTES # (AUTO) 0.1 X10'3 (0-0.9); MONOCYTES % (AUTO) 1.4 % (2-12); NEUTROPHILS # (AUTO) 8.7 X10'3 (1.8-7.7); NEUTROPHILS % (AUTO) 93.3 % (42-75); PLATELET COUNT 189 X10'3 (140-440); RED BLOOD COUNT 4.15 X10'6 (4.20-5.60); RED CELL DISTRIBUTION WIDTH 17.1 % (11.5-14.5); WHITE BLOOD COUNT 9.3 X10'3 (4.5-11.0)
[2018-04-27 07:00] VITALS: BP 108/53
[2018-04-27] MEDS ORDERED: levoFLOXACIN-Levaquin 250mg/D5 50 ML IV SCH (08:00)
[2018-04-27] MEDS: theophylline anhydrous 100mg ER capsule 24-hour PO SCH (08:48)
[2018-04-27] MEDS: spironolactone 25 MG tablet PO SCH (08:50)
[2018-04-27] MEDS: gabapentin 300mg capsule PO SCH ×2 (08:50→19:26)
[2018-04-27] MEDS: docusate sod 100mg capsule PO SCH ×2 (08:51→19:26)
[2018-04-27] MEDS: potassium chloride 8mEq ER tablet PO SCH ×2 (08:51→19:26)
[2018-04-27] MEDS: apixaban 5mg tablet PO SCH ×2 (08:51→19:26)
[2018-04-27] MEDS: ondansetron/PF 4mg/2ml inj IV PRN ×2 (08:52→19:26)
[2018-04-27] MEDS: furosemide 10 MG/1 ML 10ml inj IV SCH ×2 (08:55→20:00)
[2018-04-27] MEDS: pantoprazole 40mg Tablet.DR PO SCH ×2 (09:02→16:39)
[2018-04-27] MEDS: levoTHYROXINE 25mcg tablet PO SCH (09:03)
[2018-04-27] MEDS: methylPREDNISolone sod succ 125mg/2ml vial IV SCH ×2 (09:13→19:26)
[2018-04-27] MEDS: insulin Lispro (HumaLOG) vial - multi-dose SQ SCH ×3 (09:29→18:47)
[2018-04-27] MEDS: diltiazem CD 180mg cap (once-daily) PO SCH (10:35)
[2018-04-27] MEDS: nitroGLYCERIN 0.2mg/hour patch TD SCH (10:36)
[2018-04-27 11:53] VITALS: BP 98/64
[2018-04-27] MEDS: benzocaine/menthol oral lozeng 1 EACH BOX MM PRN ×3 (12:04→19:27)
[2018-04-27 12:41] VITALS: BP 109/69
[2018-04-27 18:00] VITALS: BP 110/50
[2018-04-27] MEDS: lisinopril 2.5mg tablet PO SCH (22:29)
[2018-04-28] VITALS: BP 101/54
[2018-04-28 07:00] VITALS: BP 120/63
[2018-04-28] MEDS: ipratropium/albuterol 3ml nebule NEB PRN (07:22)
[2018-04-28 07:47] LABS: BASOPHILS % (AUTO) 0 % (0-1); EOSINOPHILS # (AUTO) 0.1 X10'3 (0-0.9); EOSINOPHILS % (AUTO) 1.1 % (0-6); HEMATOCRIT 35.5 % (35.0-45.0); HEMOGLOBIN 11.2 g/dl (12.0-16.0); LYMPHOCYTES # (AUTO) 0.5 X10'3 (1.1-4.8); LYMPHOCYTES % (AUTO) 5.6 % (21-51); MEAN CORPUSCULAR HEMOGLOBIN 25.8 PG (27.0-31.0); MEAN CORPUSCULAR HGB CONC 31.6 % (33.0-36.5); MEAN CORPUSCULAR VOLUME 81.7 FL (78-98); MEAN PLATELET VOLUME 7.7 FL (7.4-10.4); MONOCYTES # (AUTO) 0.1 X10'3 (0-0.9); MONOCYTES % (AUTO) 1.2 % (2-12); NEUTROPHILS # (AUTO) 8.2 X10'3 (1.8-7.7); NEUTROPHILS % (AUTO) 92.1 % (42-75); PLATELET COUNT 204 X10'3 (140-440); RED BLOOD COUNT 4.35 X10'6 (4.20-5.60); RED CELL DISTRIBUTION WIDTH 17.1 % (11.5-14.5); WHITE BLOOD COUNT 8.9 X10'3 (4.5-11.0)
[2018-04-28] MEDS: theophylline anhydrous 100mg ER capsule 24-hour PO SCH (08:00)
[2018-04-28 08:04] LABS: ALANINE AMINOTRANSFERASE 33 U/L (12-78); ALBUMIN 3.2 G/DL (3.4-5.0); ALBUMIN/GLOBULIN RATIO 0.9 (1.1-1.5); ALKALINE PHOSPHATASE 77 IU/L (46-116); ANION GAP 6 (8-16); ASPARTATE AMINO TRANSFERASE 24 U/L (10-37); BILIRUBIN,TOTAL 0.3 MG/DL (0.1-1.0); BLOOD UREA NITROGEN 36 MG/DL (7-18); BUN/CREATININE RATIO 28.6 (6.6-38.0); CHLORIDE 102 MMOL/L (99-107); CREATININE 1.26 MG/DL (0.40-0.90); GLUCOSE 164 MG/DL (70-104); POTASSIUM 4.6 MMOL/L (3.5-5.1); SODIUM 139 MMOL/L (135-145); TOTAL CARBON DIOXIDE 30.7 MMOL/L (24-32); TOTAL PROTEIN 6.7 G/DL (6.4-8.2); eGFR 42 ML/MIN
[2018-04-28] MEDS: levoTHYROXINE 25mcg tablet PO SCH (08:25)
[2018-04-28] MEDS: docusate sod 100mg capsule PO SCH ×2 (08:26→19:44)
[2018-04-28] MEDS: potassium chloride 8mEq ER tablet PO SCH ×2 (08:26→19:45)
[2018-04-28] MEDS: apixaban 5mg tablet PO SCH ×2 (08:26→19:45)
[2018-04-28] MEDS: pantoprazole 40mg Tablet.DR PO SCH ×2 (08:26→17:34)
[2018-04-28] MEDS: gabapentin 300mg capsule PO SCH ×2 (08:27→19:45)
[2018-04-28] MEDS: diltiazem CD 180mg cap (once-daily) PO SCH (08:28)
[2018-04-28] MEDS: methylPREDNISolone sod succ 125mg/2ml vial IV SCH (08:29)
[2018-04-28] MEDS: spironolactone 25 MG tablet PO SCH (08:40)
[2018-04-28] MEDS: furosemide 10 MG/1 ML 10ml inj IV SCH ×2 (08:40→19:47)
[2018-04-28] MEDS: nitroGLYCERIN 0.2mg/hour patch TD SCH (08:41)
[2018-04-28] MEDS: insulin Lispro (HumaLOG) vial - multi-dose SQ SCH ×3 (09:08→18:52)
[2018-04-28 11:00] VITALS: BP 99/72
[2018-04-28] MEDS: benzocaine/menthol oral lozeng 1 EACH BOX MM PRN (19:59)
[2018-04-28 20:00] VITALS: BP 106/54
[2018-04-28] MEDS: lisinopril 2.5mg tablet PO SCH (21:15)
[2018-04-29] VITALS: BP 126/57
[2018-04-29 06:43] LABS: BASOPHILS % (AUTO) 0 % (0-1); EOSINOPHILS # (AUTO) 0.1 X10'3 (0-0.9); EOSINOPHILS % (AUTO) 1.6 % (0-6); HEMATOCRIT 34.7 % (35.0-45.0); HEMOGLOBIN 11.2 g/dl (12.0-16.0); LYMPHOCYTES # (AUTO) 0.6 X10'3 (1.1-4.8); LYMPHOCYTES % (AUTO) 7.1 % (21-51); MEAN CORPUSCULAR HEMOGLOBIN 26.1 PG (27.0-31.0); MEAN CORPUSCULAR HGB CONC 32.2 % (33.0-36.5); MONOCYTES # (AUTO) 0.3 X10'3 (0-0.9); MONOCYTES % (AUTO) 3.9 % (2-12); NEUTROPHILS # (AUTO) 7.4 X10'3 (1.8-7.7); NEUTROPHILS % (AUTO) 87.4 % (42-75); PLATELET COUNT 213 X10'3 (140-440); RED BLOOD COUNT 4.28 X10'6 (4.20-5.60); RED CELL DISTRIBUTION WIDTH 17.1 % (11.5-14.5); WHITE BLOOD COUNT 8.4 X10'3 (4.5-11.0)
[2018-04-29 07:01] LABS: ALANINE AMINOTRANSFERASE 48 U/L (12-78); ALBUMIN/GLOBULIN RATIO 0.9 (1.1-1.5); ALKALINE PHOSPHATASE 77 IU/L (46-116); ANION GAP 5 (8-16); ASPARTATE AMINO TRANSFERASE 22 U/L (10-37); BILIRUBIN,TOTAL 0.2 MG/DL (0.1-1.0); BLOOD UREA NITROGEN 42 MG/DL (7-18); BUN/CREATININE RATIO 33.9 (6.6-38.0); CALCIUM 8.5 MG/DL (8.5-10.1); CHLORIDE 102 MMOL/L (99-107); CREATININE 1.24 MG/DL (0.40-0.90); GLUCOSE 158 MG/DL (70-104); SODIUM 138 MMOL/L (135-145); TOTAL CARBON DIOXIDE 31.2 MMOL/L (24-32); TOTAL PROTEIN 6.4 G/DL (6.4-8.2); eGFR 43 ML/MIN
[2018-04-29 08:00] VITALS: BP 107/63
[2018-04-29] MEDS ORDERED: predniSONE 20 mg tablet PO SCH (08:00)
[2018-04-29] MEDS: levoTHYROXINE 25mcg tablet PO SCH (08:23)
[2018-04-29] MEDS: pantoprazole 40mg Tablet.DR PO SCH (08:24)
[2018-04-29] MEDS: furosemide 10 MG/1 ML 10ml inj IV SCH (08:25)
[2018-04-29] MEDS: diltiazem CD 180mg cap (once-daily) PO SCH (08:25)
[2018-04-29] MEDS: spironolactone 25 MG tablet PO SCH (08:25)
[2018-04-29 08:26] VITALS: BP 125/77
[2018-04-29] MEDS: docusate sod 100mg capsule PO SCH (08:26)
[2018-04-29] MEDS: apixaban 5mg tablet PO SCH (08:26)
[2018-04-29] MEDS: gabapentin 300mg capsule PO SCH (08:26)
[2018-04-29] MEDS: potassium chloride 8mEq ER tablet PO SCH (08:26)
[2018-04-29] MEDS: theophylline anhydrous 100mg ER capsule 24-hour PO SCH (08:28)
[2018-04-29] MEDS: nitroGLYCERIN 0.2mg/hour patch TD SCH (08:29)
[2018-04-29] MEDS: insulin Lispro (HumaLOG) vial - multi-dose SQ SCH (08:46)
[2018-04-29 12:00] VITALS: BP 92/47
== END 2018-04-29 17:26 | disposition home or self-care (01) | DRG 682 ==
LOC: ER 19:25 → ED HOLD 21:22 → SUR 3N 23:48
PROVIDERS: ADMIT Family Medicine; ATTEND Hospitalist
PROC: 5A09357 Assistance with Respiratory Ventilation, Less than 24 Consecutive Hours, Continuous Positive Airway Pressure (ICD-10-PCS; principal; 2018-04-26)
PROC: 5A09357 Assistance with Respiratory Ventilation, Less than 24 Consecutive Hours, Continuous Positive Airway Pressure (ICD-10-PCS; 2018-04-27)
PROC: 5A09357 Assistance with Respiratory Ventilation, Less than 24 Consecutive Hours, Continuous Positive Airway Pressure (ICD-10-PCS; 2018-04-28)
DX: N17.9 Acute kidney failure, unspecified (principal); I50.23 Acute on chronic systolic (congestive) heart failure; J96.21 Acute and chronic respiratory failure with hypoxia; J44.1 Chronic obstructive pulmonary disease with (acute) exacerbation; I13.0 Hypertensive heart and chronic kidney disease with heart failure and stage 1 through stage 4 chronic kidney disease, or unspecified chronic kidney disease; Z68.41 Body mass index [BMI] 40.0-44.9, adult; E03.9 Hypothyroidism, unspecified; E11.22 Type 2 diabetes mellitus with diabetic chronic kidney disease; E11.40 Type 2 diabetes mellitus with diabetic neuropathy, unspecified; E78.00 Pure hypercholesterolemia, unspecified; E66.9 Obesity, unspecified; G47.30 Sleep apnea, unspecified; Z60.2 Problems related to living alone; N18.3 Chronic kidney disease, stage 3 (moderate); I48.0 Paroxysmal atrial fibrillation; I08.1 Rheumatic disorders of both mitral and tricuspid valves; I25.10 Atherosclerotic heart disease of native coronary artery without angina pectoris; Z90.710 Acquired absence of both cervix and uterus; Z98.51 Tubal ligation status; Z90.49 Acquired absence of other specified parts of digestive tract; Z95.0 Presence of cardiac pacemaker; Z88.0 Allergy status to penicillin; Z88.6 Allergy status to analgesic agent; Z88.8 Allergy status to other drugs, medicaments and biological substances; Z91.018 Allergy to other foods; Z79.890 Hormone replacement therapy; Z79.899 Other long term (current) drug therapy; Z79.01 Long term (current) use of anticoagulants
CPT/HCPCS: 36415; 36600; 71045; 80053; 82803; 82948; 83036; 83605; 83735; 83880; 84100; 84145; 84484; 85018; 85025; 85610; 85730; 87040; 87070; 93005; 93306; 94640; 94644; 94660; 94667; 94668; 94760; 96365; 96375; 97110; 97116; 97162; 97530; 99285; G0378; J1940; J1956; J2405; J2930; J3475; J7512

== ENCOUNTER 2018-05-28 00:24 | Inpatient (IN) | payer MEDICARE, MEDICAID ==
[~2018-05-28] VITALS: Ht 160 cm; Wt 103.2 kg
[2018-05-28] MEDS ORDERED: normal saline 1000ml 1,000 ML IV ONE (00:51)
[2018-05-28] MEDS ORDERED: diltiazem-D5W 125mg/125ml 125 ML IV PRN (00:54)
[2018-05-28] MEDS ORDERED: albuterol 2.5 MG/3 ML nebule NEB ONE (00:55)
[2018-05-28] MEDS ORDERED: methylPREDNISolone sod succ 125mg/2ml vial IV ONE (00:55)
[2018-05-28] MEDS ORDERED: diltiazem 5mg/ml 5ml inj. IV ONE (00:55)
[2018-05-28 01:48] LABS: INR 1.1 INR; PARTIAL THROMBOPLASTIN TIME 27 SECONDS (22-32); PROTHROMBIN TIME 11.1 SECONDS (9.0-12.0)
[2018-05-28 01:57] LABS: ALANINE AMINOTRANSFERASE 27 U/L (12-78); ALBUMIN 3.2 G/DL (3.4-5.0); ALBUMIN/GLOBULIN RATIO 0.9 (1.1-1.5); ALKALINE PHOSPHATASE 98 IU/L (46-116); ANION GAP 10 (8-16); ASPARTATE AMINO TRANSFERASE 21 U/L (10-37); BILIRUBIN,TOTAL 0.6 MG/DL (0.1-1.0); BLOOD UREA NITROGEN 18 MG/DL (7-18); BUN/CREATININE RATIO 15.9 (6.6-38.0); CALCIUM 8.7 MG/DL (8.5-10.1); CHLORIDE 105 MMOL/L (99-107); CREATININE 1.13 MG/DL (0.40-0.90); GLUCOSE 124 MG/DL (70-104); MAGNESIUM 2.1 MG/DL (1.5-2.4); PHOSPHORUS 3.4 MG/DL (2.3-4.5); POTASSIUM 4.3 MMOL/L (3.5-5.1); SODIUM 141 MMOL/L (135-145); TOTAL CARBON DIOXIDE 26.4 MMOL/L (24-32); TOTAL PROTEIN 6.7 G/DL (6.4-8.2); eGFR 48 ML/MIN
[2018-05-28 02:00] LABS: BASOPHILS % (AUTO) 0.4 % (0-1); EOSINOPHILS # (AUTO) 0.1 X10'3 (0-0.9); EOSINOPHILS % (AUTO) 1.7 % (0-6); HEMATOCRIT 36.9 % (35.0-45.0); HEMOGLOBIN 12.2 g/dl (12.0-16.0); LYMPHOCYTES # (AUTO) 1.2 X10'3 (1.1-4.8); LYMPHOCYTES % (AUTO) 14.8 % (21-51); MEAN CORPUSCULAR HEMOGLOBIN 28.8 PG (27.0-31.0); MEAN CORPUSCULAR HGB CONC 33.1 % (33.0-36.5); MEAN CORPUSCULAR VOLUME 87.2 FL (78-98); MEAN PLATELET VOLUME 8.2 FL (7.4-10.4); MONOCYTES # (AUTO) 0.6 X10'3 (0-0.9); MONOCYTES % (AUTO) 7.2 % (2-12); NEUTROPHILS # (AUTO) 5.9 X10'3 (1.8-7.7); NEUTROPHILS % (AUTO) 75.9 % (42-75); PLATELET COUNT 268 X10'3 (140-440); RED BLOOD COUNT 4.23 X10'6 (4.20-5.60); RED CELL DISTRIBUTION WIDTH 17.1 % (11.5-14.5); WHITE BLOOD COUNT 7.8 X10'3 (4.5-11.0)
[2018-05-28 02:16] LABS: ABG HCO3 24.9 mmol/L (22.0-26.0); ABG OXYGEN SATURATION 97.1 % (95-98); ABG PCO2 (T) 35.4 mmHg (32.0-45.0); ABG PO2 (T) 91.5 mmHg (83-108); ALLEN'S TEST Positive; FCOHb 0.5 % (0.5-1.5); FMetHb 0.1 % (0.3-1.12); FO2Hb 96.5 % (94-100); RESPIRATORY RATE 16 b/min; RESPIRATORY RATE (OBSERVED) 24 b/min; TOTAL HEMOGLOBIN 12.3 G/dl (12.0-16.0)
[2018-05-28] MEDS ORDERED: normal saline 1000ml 1,000 ML IV SCH (03:03)
[2018-05-28] MEDS ORDERED: bisacodyl 10mg suppository rectal RC PRN (03:05)
[2018-05-28] MEDS ORDERED: ondansetron/PF 4mg/2ml inj IV PRN (03:05)
[2018-05-28] MEDS ORDERED: diphenhydrAMINE 50 mg/ml inj IV PRN (03:05)
[2018-05-28] MEDS ORDERED: HYDROcodone/acetaminophen 10/325mg tab PO PRN (03:05)
[2018-05-28] MEDS ORDERED: acetaminophen 325mg tablet PO PRN ×2 (03:05)
[2018-05-28] MEDS ORDERED: magnesium hydroxide 30ml (MOM) UD suspension PO PRN (03:05)
[2018-05-28] MEDS ORDERED: acetaminophen 650mg rectal suppository RC PRN (03:05)
[2018-05-28] MEDS ORDERED: metoclopramide 5 mg/ml inj IV PRN (03:05)
[2018-05-28] MEDS ORDERED: morphine 4 MG/ML inj SYRINge IV PRN (03:05)
[2018-05-28] MEDS ORDERED: diphenhydrAMINE 25mg capsule PO PRN (03:05)
[2018-05-28] MEDS ORDERED: HYDROmorphone 1 mg/ml syringe IV PRN (03:05)
[2018-05-28] MEDS ORDERED: mag hydrox/Alum hydrox/simeth 30ml oral suspension PO PRN (03:05)
[2018-05-28] MEDS ORDERED: MESSAGE TO PHARMACY PO ONE (03:10)
[2018-05-28] MEDS ORDERED: dextrose ORAL solution 15 GM/59 ML bottle PO PRN ×2 (03:10)
[2018-05-28] MEDS ORDERED: dextrose 50%-water 50ml dispensing syringe IV PRN ×2 (03:10)
[2018-05-28] MEDS ORDERED: glucagon, human recombinant 1mg kit SUBCUT PRN (03:10)
[2018-05-28] MEDS ORDERED: ipratropium/albuterol 3ml nebule NEB PRN ×2 (03:40→11:35)
[2018-05-28] MEDS ORDERED: PANT-47 PO (06:50)
[2018-05-28] MEDS ORDERED: levoFLOXACIN-Levaquin 750MG/D5 150 ML IV SCH (08:00)
--- NOTE | 2018-05-28 08:15 | NUR ---
Received patient report from Leandra LARA in the ED. Awaiting patient's arrival to the unit.
--- NOTE | 2018-05-28 08:40 | NUR ---
Patient arrived to the unit accompanied by ED personnel and transferred self to the hospital bed. 2 RN skin check complete, vital signs obtained, Bipap continued at 25% FiO2, bedside monitoring initiated, patient's belongings placed on the bedside dresser, patient oriented to the room and call light. Will continue to monitor patient.
[2018-05-28 08:45] VITALS: BP 126/87
[2018-05-28] MEDS: methylPREDNISolone sod succ 125mg/2ml vial IV SCH ×2 (09:19→15:12)
[2018-05-28] MEDS: docusate sod 100mg capsule PO SCH ×2 (09:19→19:48)
[2018-05-28 11:00] VITALS: BP 115/61
[2018-05-28] MEDS ORDERED: LORazepam 0.5 MG tablet PO PRN (11:35)
[2018-05-28] MEDS: CefTRIAXone/D5W-Rocephin 1gm 50 ML IV SCH (14:04)
--- NOTE | 2018-05-28 14:04 | NUR ---
Orders for heart cath ordered on patient incorrectly. Cancelled orders. Please disreguard.
[2018-05-28 15:00] VITALS: BP 111/90
[2018-05-28] MEDS: furosemide 40mg/4ml inj IV SCH ×2 (15:12→19:51)
[2018-05-28] MEDS ORDERED: diltiazem-D5W 125mg/125ml 125 ML IV SCH (17:00)
[2018-05-28 18:00] VITALS: BP 93/31
--- NOTE | 2018-05-28 18:23 | NUR ---
Problems reprioritized. Patient report given, questions answered & plan of care reviewed with Robert LARA. Patient stable at transfer of care.
--- NOTE | 2018-05-28 18:25 | NUR ---
[place] documentation: I have reviewed and agree with all interventions, assessments performed and documented by Junaid LARA. [place] Medication Administration: For this medication-pass time frame, all medication were reviewed, dispensed, administered and documented per hospital policy by Junaid LARA.
--- NOTE | 2018-05-28 18:51 | NUR ---
Patient in room PCU 3027. I have received report from Massiel LARA and had the opportunity to ask questions and assume patient care.
[2018-05-28] MEDS: apixaban 5mg tablet PO SCH (19:48)
[2018-05-28] MEDS: gabapentin 300mg capsule PO SCH (19:48)
[2018-05-28] MEDS: pantoprazole 40mg Tablet.DR PO SCH (19:48)
[2018-05-28] MEDS: ipratropium/albuterol 3ml nebule NEB SCH ×2 (19:58→23:54)
[2018-05-28] MEDS ORDERED: temazepam 15mg capsule PO PRN (21:00)
[2018-05-28] MEDS: insulin glargine (Lantus) pen - multi-dose SQ SCH (21:48)
[2018-05-28] MEDS: lisinopril 2.5mg tablet PO SCH (21:50)
[2018-05-28 22:00] VITALS: BP 123/80
[2018-05-29] VITALS (11 sets, daily range): BP systolic 85–147; BP diastolic 39–103
[2018-05-29] MEDS: methylPREDNISolone sod succ 125mg/2ml vial IV SCH ×3 (00:45→15:44)
[2018-05-29 05:22] LABS: BASOPHILS % (AUTO) 0 % (0-1); EOSINOPHILS % (AUTO) 0.7 % (0-6); LYMPHOCYTES # (AUTO) 0.4 X10'3 (1.1-4.8); MEAN CORPUSCULAR HEMOGLOBIN 26.7 PG (27.0-31.0); MEAN CORPUSCULAR HGB CONC 32.3 % (33.0-36.5); MEAN CORPUSCULAR VOLUME 82.6 FL (78-98); MEAN PLATELET VOLUME 8.4 FL (7.4-10.4); MONOCYTES # (AUTO) 0.1 X10'3 (0-0.9); MONOCYTES % (AUTO) 2.2 % (2-12); NEUTROPHILS # (AUTO) 6.2 X10'3 (1.8-7.7); NEUTROPHILS % (AUTO) 91.1 % (42-75); PLATELET COUNT 242 X10'3 (140-440); RED BLOOD COUNT 4.11 X10'6 (4.20-5.60); RED CELL DISTRIBUTION WIDTH 16.5 % (11.5-14.5); WHITE BLOOD COUNT 6.8 X10'3 (4.5-11.0)
[2018-05-29 05:34] LABS: ALANINE AMINOTRANSFERASE 22 U/L (12-78); ALBUMIN 2.8 G/DL (3.4-5.0); ALBUMIN/GLOBULIN RATIO 0.8 (1.1-1.5); ALKALINE PHOSPHATASE 78 IU/L (46-116); ANION GAP 10 (8-16); ASPARTATE AMINO TRANSFERASE 12 U/L (10-37); BILIRUBIN,TOTAL 0.3 MG/DL (0.1-1.0); BLOOD UREA NITROGEN 26 MG/DL (7-18); BUN/CREATININE RATIO 20.3 (6.6-38.0); CALCIUM 8.5 MG/DL (8.5-10.1); CHLORIDE 104 MMOL/L (99-107); CREATININE 1.28 MG/DL (0.40-0.90); GLUCOSE 163 MG/DL (70-104); POTASSIUM 3.8 MMOL/L (3.5-5.1); SODIUM 142 MMOL/L (135-145); TOTAL CARBON DIOXIDE 27.6 MMOL/L (24-32); TOTAL PROTEIN 6.2 G/DL (6.4-8.2); eGFR 41 ML/MIN
--- NOTE | 2018-05-29 06:31 | NUR ---
Problems reprioritized. Patient report given, questions answered & plan of care reviewed with Diana LARA.
--- NOTE | 2018-05-29 06:43 | NUR ---
Patient in room PCU 3027. I have received report from Casey LARA and had the opportunity to ask questions and assume patient care. Will continue to monitor.
[2018-05-29] MEDS: ipratropium/albuterol 3ml nebule NEB SCH ×5 (07:05→23:40)
[2018-05-29] MEDS ORDERED: nitroGLYCERIN 0.2mg/hour patch TD SCH (08:00)
[2018-05-29] MEDS: insulin Lispro (HumaLOG) vial - multi-dose SQ SCH ×3 (08:25→18:57)
[2018-05-29] MEDS: pantoprazole 40mg Tablet.DR PO SCH ×2 (08:27→20:36)
[2018-05-29] MEDS: apixaban 5mg tablet PO SCH ×2 (08:27→20:36)
[2018-05-29] MEDS: gabapentin 300mg capsule PO SCH ×2 (08:27→20:36)
[2018-05-29] MEDS: docusate sod 100mg capsule PO SCH ×2 (08:27→20:37)
--- NOTE | 2018-05-29 08:40 | NUR ---
Spoke with Dr. Shaw regarding patient's SBP trending in 90's to low 100's. I told Dr. Shaw that I was concerned about hypotension because she is scheduled for 40 mg of Lasix BID and is currently on Cardizem 5 mg/hr. Per Dr. Shaw, new order to adjust Lasix to 20 mg BID. Will continue to monitor.
[2018-05-29] MEDS: levoTHYROXINE 25mcg tablet PO SCH (08:50)
[2018-05-29] MEDS: CefTRIAXone/D5W-Rocephin 1gm 50 ML IV SCH (08:51)
[2018-05-29] MEDS: diltiazem CD 180mg cap (once-daily) PO SCH (10:29)
--- NOTE | 2018-05-29 10:49 | NUR ---
PAGER ID: [phone] MESSAGE: [id number] Reji Page Patient's SBP is 104, just gave 180 mg SR Cardizem. Would you like me to hold Nitro patch? Thank you, Diana #[phone] Addendum: 05/29/18 at 1123 by Diana Kamara RN Dr. Shaw called back. Per Dr. Shaw, discontinue nitro patch.
--- NOTE | 2018-05-29 15:46 | NUR ---
Extended PIV inserted to the right upper arm basilic vein x 2 attempts using ultrasound. Kit well Addendum: 05/29/18 at 1547 by Jana Rapp RN Amended: Links added.
--- NOTE | 2018-05-29 15:55 | NUR ---
PAGER ID: [phone] MESSAGE: [id number] B Reji Page Pt's BP is 85/62 (MAP 67) and trending down. Pt on Cardizem 5mg/hr. Please call Diana #[phone] Thank you
--- NOTE | 2018-05-29 16:00 | NUR ---
Dr. Shaw called back regarding patient's SBP of 85/62 while pt on Cardizem drip of 5 mL/hr. New order to discontinue Cardizem. Will continue to monitor.
--- NOTE | 2018-05-29 18:39 | NUR ---
Problems reprioritized. Patient report given, questions answered & plan of care reviewed with Casey LARA.
[2018-05-29] MEDS: furosemide 20 MG/2 ML vial IV SCH (20:37)
[2018-05-29] MEDS: lisinopril 2.5mg tablet PO SCH (20:37)
[2018-05-29] MEDS: insulin glargine (Lantus) pen - multi-dose SQ SCH (21:00)
[2018-05-30] MEDS: methylPREDNISolone sod succ 125mg/2ml vial IV SCH ×2 (00:42→07:55)
[2018-05-30] MEDS ORDERED: benzonatate 100mg capsule PO PRN (01:00)
[2018-05-30 02:00] VITALS: BP 106/54
[2018-05-30 05:46] LABS: BASOPHILS % (AUTO) 0 % (0-1); EOSINOPHILS # (AUTO) 0.1 X10'3 (0-0.9); EOSINOPHILS % (AUTO) 1.3 % (0-6); HEMATOCRIT 34.5 % (35.0-45.0); LYMPHOCYTES # (AUTO) 0.3 X10'3 (1.1-4.8); LYMPHOCYTES % (AUTO) 3.1 % (21-51); MEAN CORPUSCULAR HEMOGLOBIN 26.1 PG (27.0-31.0); MEAN CORPUSCULAR HGB CONC 31.8 % (33.0-36.5); MEAN CORPUSCULAR VOLUME 82.1 FL (78-98); MONOCYTES # (AUTO) 0.1 X10'3 (0-0.9); MONOCYTES % (AUTO) 1.1 % (2-12); NEUTROPHILS # (AUTO) 8.5 X10'3 (1.8-7.7); NEUTROPHILS % (AUTO) 94.5 % (42-75); PLATELET COUNT 249 X10'3 (140-440); RED CELL DISTRIBUTION WIDTH 17.2 % (11.5-14.5)
[2018-05-30 06:00] VITALS: BP 97/68
[2018-05-30 06:02] LABS: ALANINE AMINOTRANSFERASE 22 U/L (12-78); ALBUMIN/GLOBULIN RATIO 0.9 (1.1-1.5); ALKALINE PHOSPHATASE 82 IU/L (46-116); ANION GAP 12 (8-16); ASPARTATE AMINO TRANSFERASE 9 U/L (10-37); BILIRUBIN,TOTAL 0.2 MG/DL (0.1-1.0); BLOOD UREA NITROGEN 29 MG/DL (7-18); CALCIUM 8.5 MG/DL (8.5-10.1); CHLORIDE 103 MMOL/L (99-107); CREATININE 1.32 MG/DL (0.40-0.90); GLUCOSE 164 MG/DL (70-104); POTASSIUM 3.4 MMOL/L (3.5-5.1); SODIUM 141 MMOL/L (135-145); TOTAL CARBON DIOXIDE 26.5 MMOL/L (24-32); TOTAL PROTEIN 6.4 G/DL (6.4-8.2); eGFR 40 ML/MIN
--- NOTE | 2018-05-30 06:41 | NUR ---
Patient in room PCU 3027. I have received report from Robert LARA and had the opportunity to ask questions and assume patient care.
[2018-05-30] MEDS ORDERED: potassium Cl 40MEQ/NS 500ml 500 ML IV PRN ×2 (07:00)
[2018-05-30] MEDS ORDERED: potassium Cl 20 mEq SR tablet PO PRN (07:00)
[2018-05-30] MEDS: levoTHYROXINE 25mcg tablet PO SCH (07:08)
[2018-05-30] MEDS: ipratropium/albuterol 3ml nebule NEB SCH ×5 (07:20→23:17)
[2018-05-30 07:32] VITALS: BP 102/70
--- NOTE | 2018-05-30 07:40 | NUR ---
PAGER ID: [phone] MESSAGE: DR. KRAMER, [id number]/GABRIELA, + BLOOD CULTURE, FROM 05/28 @ 0119 [address] [place], MRSA. PLEASE CALL ANTHONY [phone]. TY
[2018-05-30] MEDS: furosemide 20 MG/2 ML vial IV SCH ×2 (07:54→20:29)
[2018-05-30] MEDS: CefTRIAXone/D5W-Rocephin 1gm 50 ML IV SCH (07:55)
[2018-05-30] MEDS: diltiazem CD 180mg cap (once-daily) PO SCH (07:56)
[2018-05-30] MEDS: docusate sod 100mg capsule PO SCH ×2 (07:56→20:27)
[2018-05-30] MEDS: apixaban 5mg tablet PO SCH ×2 (07:56→20:27)
[2018-05-30] MEDS: gabapentin 300mg capsule PO SCH ×2 (07:56→20:27)
[2018-05-30] MEDS: pantoprazole 40mg Tablet.DR PO SCH ×2 (07:57→20:27)
[2018-05-30] MEDS: potassium Cl 20 mEq SR tablet PO PRN ×3 (08:01→17:15)
[2018-05-30] MEDS ORDERED: predniSONE 20 mg tablet PO SCH (09:20)
[2018-05-30] MEDS: insulin Lispro (HumaLOG) vial - multi-dose SQ SCH ×3 (09:24→19:14)
[2018-05-30] MEDS: vancomycin/NS 1 GM ADD-VANTAGE 250 ML IV SCH ×2 (10:20→12:13)
[2018-05-30 11:00] VITALS: BP 104/42
[2018-05-30] MEDS ORDERED: levoFLOXACIN 750MG TABLET PO SCH (11:00)
[2018-05-30 15:00] VITALS: BP 112/49
[2018-05-30] MEDS: predniSONE 20 mg tablet PO SCH (17:16)
--- NOTE | 2018-05-30 18:37 | NUR ---
Problems reprioritized. Patient report given, questions answered & plan of care reviewed with JANE CALI.
--- NOTE | 2018-05-30 18:37 | NUR ---
ENVIRONMENTAL HEALTH AND SAFETY LEADERcell technician: I have reviewed and agree with all interventions, assessments performed and documented by JANE BAEZA.
[2018-05-30 19:10] LABS: CLARITY,URINE CLEAR (Clear); COLOR,URINE YELLOW (Yellow); GLUCOSE, URINE NEGATIVE (Neg); KETONES,URINE NEGATIVE (Neg); LEUKOCYTE ESTERASE ,URINE NEGATIVE (Neg); NITRITES, URINE NEGATIVE (Neg); OCCULT BLOOD,URINE NEGATIVE (Neg); PROTEIN,URINE NEGATIVE (Neg); UROBILINOGEN,URINE 0.2 E.U/dL (0.2-1.0)
[2018-05-30 19:11] LABS: UA COLLECTION TYPE CLN CATCH MIDSTREAM
[2018-05-30] MEDS: lisinopril 2.5mg tablet PO SCH (20:28)
[2018-05-30] MEDS: insulin glargine (Lantus) pen - multi-dose SQ SCH (21:57)
[2018-05-31 06:00] VITALS: BP 150/104
--- NOTE | 2018-05-31 06:30 | NUR ---
Patient in room PCU 3021. I have received report from Robert LARA and had the opportunity to ask questions and assume patient care. Patient resting comfortably in bed. In no acute distress. Will continue to monitor.
[2018-05-31 06:39] LABS: BASOPHILS % (AUTO) 0.1 % (0-1); EOSINOPHILS % (AUTO) 0 % (0-6); HEMATOCRIT 33.2 % (35.0-45.0); HEMOGLOBIN 10.7 g/dl (12.0-16.0); LYMPHOCYTES # (AUTO) 0.4 X10'3 (1.1-4.8); LYMPHOCYTES % (AUTO) 5.2 % (21-51); MEAN CORPUSCULAR HEMOGLOBIN 26.7 PG (27.0-31.0); MEAN CORPUSCULAR HGB CONC 32.4 % (33.0-36.5); MEAN CORPUSCULAR VOLUME 82.5 FL (78-98); MEAN PLATELET VOLUME 8.1 FL (7.4-10.4); MONOCYTES # (AUTO) 0.2 X10'3 (0-0.9); MONOCYTES % (AUTO) 3.2 % (2-12); NEUTROPHILS # (AUTO) 7.1 X10'3 (1.8-7.7); NEUTROPHILS % (AUTO) 91.5 % (42-75); PLATELET COUNT 246 X10'3 (140-440); RED BLOOD COUNT 4.02 X10'6 (4.20-5.60); RED CELL DISTRIBUTION WIDTH 17.6 % (11.5-14.5); WHITE BLOOD COUNT 7.7 X10'3 (4.5-11.0)
[2018-05-31 06:48] LABS: ALANINE AMINOTRANSFERASE 23 U/L (12-78); ALBUMIN 2.8 G/DL (3.4-5.0); ALBUMIN/GLOBULIN RATIO 0.9 (1.1-1.5); ALKALINE PHOSPHATASE 72 IU/L (46-116); ANION GAP 9 (8-16); ASPARTATE AMINO TRANSFERASE 11 U/L (10-37); BILIRUBIN,TOTAL 0.2 MG/DL (0.1-1.0); BLOOD UREA NITROGEN 29 MG/DL (7-18); CALCIUM 8.4 MG/DL (8.5-10.1); CHLORIDE 104 MMOL/L (99-107); CREATININE 1.21 MG/DL (0.40-0.90); GLUCOSE 178 MG/DL (70-104); POTASSIUM 3.7 MMOL/L (3.5-5.1); SODIUM 140 MMOL/L (135-145); TOTAL CARBON DIOXIDE 27.2 MMOL/L (24-32); TOTAL PROTEIN 5.9 G/DL (6.4-8.2); eGFR 44 ML/MIN
--- NOTE | 2018-05-31 06:50 | NUR ---
Problems reprioritized. Patient report given, questions answered & plan of care reviewed with Galilea LARA.
[2018-05-31] MEDS: ipratropium/albuterol 3ml nebule NEB SCH ×6 (07:35→23:56)
[2018-05-31] MEDS: gabapentin 300mg capsule PO SCH ×2 (09:42→20:32)
[2018-05-31] MEDS: furosemide 20 MG/2 ML vial IV SCH ×2 (09:42→20:32)
[2018-05-31] MEDS: diltiazem CD 180mg cap (once-daily) PO SCH (09:43)
[2018-05-31] MEDS: pantoprazole 40mg Tablet.DR PO SCH ×2 (09:43→20:32)
[2018-05-31] MEDS: levoTHYROXINE 25mcg tablet PO SCH (09:43)
[2018-05-31] MEDS: predniSONE 20 mg tablet PO SCH (09:43)
[2018-05-31] MEDS: docusate sod 100mg capsule PO SCH ×2 (09:43→20:32)
[2018-05-31] MEDS: apixaban 5mg tablet PO SCH ×2 (09:43→20:32)
[2018-05-31] MEDS: insulin Lispro (HumaLOG) vial - multi-dose SQ SCH ×3 (09:59→20:28)
[2018-05-31 11:00] VITALS: BP 139/93
[2018-05-31 15:00] VITALS: BP 102/55
[2018-05-31] MEDS ORDERED: PRED20TA PO (17:48)
[2018-05-31] MEDS ORDERED: LINE600T32 PO (17:48)
--- NOTE | 2018-05-31 18:30 | NUR ---
Problems reprioritized. Patient report given, questions answered & plan of care reviewed with Deep RN.
[2018-05-31 19:00] VITALS: BP 116/100
[2018-05-31] MEDS: lisinopril 2.5mg tablet PO SCH (20:31)
[2018-05-31] MEDS: lactobacillus rhamnosus 10,000 MMU CELLS/CAPSULE PO SCH (20:32)
[2018-05-31] MEDS: linezolid 600mg tablet PO SCH (20:33)
[2018-05-31] MEDS: insulin glargine (Lantus) pen - multi-dose SQ SCH (22:41)
[2018-05-31 23:00] VITALS: BP 126/65
[2018-06-01] VITALS (7 sets, daily range): BP systolic 93–138; BP diastolic 51–80
--- NOTE | 2018-06-01 06:49 | NUR ---
Problems reprioritized. Patient report given, questions answered & plan of care reviewed with Pat RN.
--- NOTE | 2018-06-01 07:29 | NUR ---
Patient in room PCU 3021. I have received report from Davonte LARA and had the opportunity to ask questions and assume patient care.
[2018-06-01] MEDS: diltiazem CD 180mg cap (once-daily) PO SCH (07:57)
[2018-06-01] MEDS: docusate sod 100mg capsule PO SCH ×2 (08:18→19:46)
[2018-06-01] MEDS: apixaban 5mg tablet PO SCH ×2 (08:18→19:45)
[2018-06-01] MEDS: predniSONE 20 mg tablet PO SCH (08:19)
[2018-06-01] MEDS: lactobacillus rhamnosus 10,000 MMU CELLS/CAPSULE PO SCH ×2 (08:19→19:45)
[2018-06-01] MEDS: gabapentin 300mg capsule PO SCH ×2 (08:19→19:45)
[2018-06-01] MEDS: pantoprazole 40mg Tablet.DR PO SCH ×2 (08:20→19:44)
[2018-06-01] MEDS: linezolid 600mg tablet PO SCH ×2 (08:21→19:46)
[2018-06-01] MEDS: furosemide 20 MG/2 ML vial IV SCH ×2 (08:21→19:46)
[2018-06-01] MEDS: levoTHYROXINE 25mcg tablet PO SCH (09:35)
--- NOTE | 2018-06-01 13:13 | NUR ---
1100 SVN TX TRIAGED
--- NOTE | 2018-06-01 13:50 | NUR ---
PATIENT HAS BEEN WAITING FOR HER SISTER TO PICK HER UP ; ETA AT 1500. PATIENT UP TO BEDSIDE COMMODE , AND HAD LARGE BM. AT THIS TIME PATIENT'S HEART RATE INCREASED TO 130-149 ATRIAL FIBRILLATION. DENIES SOB, CHEST PAIN, AND NAUSEA; HOWEVER, DOES "FEEL DIZZY." PAGED DR. CHRISTY AT THIS TIME TO APPRISE.. Addendum: 06/01/18 at 1402 by Maegan Harrell RN Amended: Links added.
[2018-06-01] MEDS: ipratropium/albuterol 3ml nebule NEB SCH ×3 (15:04→23:54)
[2018-06-01] MEDS ORDERED: diltiazem 5mg/ml 5ml inj. IV ONE ×2 (15:55→17:30)
--- NOTE | 2018-06-01 16:15 | NUR ---
Zyvox diet ed: Pt receiving Zyvox, seen at bedside given written and verbal low tyramine nutrition education. All of patient's questions answered at this time. RD contact information provided should pt have any further questions. Will remain available. Addendum: 06/01/18 at [address] Amended: Links added.
[2018-06-01] MEDS: normal saline 1000ml 1,000 ML IV SCH (16:42)
--- NOTE | 2018-06-01 17:57 | NUR ---
PATIENT'S HEART RATE UP IN THE 170'S DR. CHRISTY APPRISED; ORDERS RECEIVED AND NOTED. CARDIZEM 10 MG IV GIVEN PER ORDER. PATIENT'S B/P INCREASED WITH THE CARDIZEM PUSH; HOWEVER, HEART RATE DOWN ONLY TO THE 130'S. NS INFUSING AT 100 ML / HOUR Addendum: 06/01/18 at 1816 by Maegan Harrell RN Amended: Links added.
--- NOTE | 2018-06-01 18:35 | NUR ---
Patient in room PCU 3021. I have received report from Krystal RN and had the opportunity to ask questions and assume patient care.
[2018-06-01] MEDS: insulin glargine (Lantus) pen - multi-dose SQ SCH (21:51)
[2018-06-01] MEDS: lisinopril 2.5mg tablet PO SCH (22:00)
[2018-06-02] MEDS: normal saline 1000ml 1,000 ML IV SCH (01:55)
[2018-06-02 03:00] VITALS: BP 105/51
[2018-06-02 05:21] LABS: BASOPHILS % (AUTO) 0.2 % (0-1); EOSINOPHILS % (AUTO) 0.2 % (0-6); HEMATOCRIT 34.3 % (35.0-45.0); HEMOGLOBIN 11.1 g/dl (12.0-16.0); LYMPHOCYTES # (AUTO) 0.9 X10'3 (1.1-4.8); LYMPHOCYTES % (AUTO) 10.6 % (21-51); MEAN CORPUSCULAR HEMOGLOBIN 26.5 PG (27.0-31.0); MEAN CORPUSCULAR HGB CONC 32.3 % (33.0-36.5); MEAN CORPUSCULAR VOLUME 82.2 FL (78-98); MEAN PLATELET VOLUME 8.5 FL (7.4-10.4); MONOCYTES # (AUTO) 0.7 X10'3 (0-0.9); MONOCYTES % (AUTO) 8.2 % (2-12); NEUTROPHILS % (AUTO) 80.8 % (42-75); PLATELET COUNT 252 X10'3 (140-440); RED BLOOD COUNT 4.18 X10'6 (4.20-5.60); WHITE BLOOD COUNT 8.6 X10'3 (4.5-11.0)
--- NOTE | 2018-06-02 06:20 | NUR ---
Patient in room PCU 3021. I have received report from Mayra LARA and had the opportunity to ask questions and assume patient care. Will continue to monitor patient.
[2018-06-02 07:00] VITALS: BP 113/74
[2018-06-02] MEDS: ipratropium/albuterol 3ml nebule NEB SCH ×2 (07:11→11:00)
[2018-06-02] MEDS: gabapentin 300mg capsule PO SCH (08:20)
[2018-06-02] MEDS: lactobacillus rhamnosus 10,000 MMU CELLS/CAPSULE PO SCH (08:20)
[2018-06-02] MEDS: diltiazem CD 180mg cap (once-daily) PO SCH (08:20)
[2018-06-02] MEDS: apixaban 5mg tablet PO SCH (08:20)
[2018-06-02] MEDS: docusate sod 100mg capsule PO SCH (08:20)
[2018-06-02] MEDS: pantoprazole 40mg Tablet.DR PO SCH (08:20)
[2018-06-02] MEDS: predniSONE 20 mg tablet PO SCH (08:23)
[2018-06-02] MEDS: linezolid 600mg tablet PO SCH (08:25)
[2018-06-02] MEDS: levoTHYROXINE 25mcg tablet PO SCH (08:33)
[2018-06-02] MEDS: furosemide 20 MG/2 ML vial IV SCH (08:33)
[2018-06-02 09:11] LABS: ALANINE AMINOTRANSFERASE 42 U/L (12-78); ALBUMIN 2.8 G/DL (3.4-5.0); ALKALINE PHOSPHATASE 70 IU/L (46-116); ANION GAP 10 (8-16); ASPARTATE AMINO TRANSFERASE 15 U/L (10-37); BILIRUBIN,TOTAL 0.3 MG/DL (0.1-1.0); BLOOD UREA NITROGEN 29 MG/DL (7-18); BUN/CREATININE RATIO 25.2 (6.6-38.0); CALCIUM 7.9 MG/DL (8.5-10.1); CHLORIDE 103 MMOL/L (99-107); CREATININE 1.15 MG/DL (0.40-0.90); GLUCOSE 71 MG/DL (70-104); POTASSIUM 3.2 MMOL/L (3.5-5.1); SODIUM 142 MMOL/L (135-145); TOTAL CARBON DIOXIDE 29.2 MMOL/L (24-32); TOTAL PROTEIN 5.6 G/DL (6.4-8.2); eGFR 47 ML/MIN
[2018-06-02] MEDS ORDERED: VANCOMYCIN LEVEL IV ONE (09:30)
[2018-06-02] MEDS ORDERED: diltiazem 30mg tablet PO ONE (10:10)
[2018-06-02 11:00] VITALS: BP 99/84
--- NOTE | 2018-06-02 12:38 | NUR ---
Sent page to Dr. Hough: PAGER ID: [phone] MESSAGE: [id number] Kaylee: K is 3.1, no replacement protocol ordered, is that ok? Thanks, Massiel [phone]
[2018-06-02] MEDS ORDERED: potassium Cl 20 mEq SR tablet PO PRN (13:45)
[2018-06-02 15:00] VITALS: BP 107/62
[2018-06-02] MEDS ORDERED: DILT240C90 PO (15:16)
--- NOTE | 2018-06-02 18:11 | NUR ---
Problems reprioritized. Patient report given, questions answered & plan of care reviewed with Mayra LARA. Patient stable at transfer of care.
--- NOTE | 2018-06-02 18:41 | NUR ---
Patient in room PCU 3021. I have received report from Massiel LARA and had the opportunity to ask questions and assume patient care.
--- NOTE | 2018-06-02 19:00 | NUR ---
pt was wheeled downstairs with all belongings. IV removed; cannula intact, pt d/c'd from tele.
== END 2018-06-02 18:55 | disposition home or self-care (01) | DRG 871 ==
LOC: ER 00:26 → ED HOLD 03:03 → PCU 3S 08:35
PROVIDERS: ADMIT Family Medicine; ATTEND Family Medicine
PROC: 5A09357 Assistance with Respiratory Ventilation, Less than 24 Consecutive Hours, Continuous Positive Airway Pressure (ICD-10-PCS; 2018-05-28)
PROC: 5A09357 Assistance with Respiratory Ventilation, Less than 24 Consecutive Hours, Continuous Positive Airway Pressure (ICD-10-PCS; 2018-05-29)
PROC: 5A09357 Assistance with Respiratory Ventilation, Less than 24 Consecutive Hours, Continuous Positive Airway Pressure (ICD-10-PCS; 2018-05-31)
PROC: 5A09357 Assistance with Respiratory Ventilation, Less than 24 Consecutive Hours, Continuous Positive Airway Pressure (ICD-10-PCS; principal; 2018-06-01)
DX: A41.9 Sepsis, unspecified organism (principal); J18.9 Pneumonia, unspecified organism; I50.23 Acute on chronic systolic (congestive) heart failure; J96.21 Acute and chronic respiratory failure with hypoxia; I13.0 Hypertensive heart and chronic kidney disease with heart failure and stage 1 through stage 4 chronic kidney disease, or unspecified chronic kidney disease; J44.1 Chronic obstructive pulmonary disease with (acute) exacerbation; J44.0 Chronic obstructive pulmonary disease with (acute) lower respiratory infection; N17.9 Acute kidney failure, unspecified; R78.81 Bacteremia; D64.9 Anemia, unspecified; E03.9 Hypothyroidism, unspecified; E11.22 Type 2 diabetes mellitus with diabetic chronic kidney disease; E78.00 Pure hypercholesterolemia, unspecified; E86.9 Volume depletion, unspecified; A49.02 Methicillin resistant Staphylococcus aureus infection, unspecified site; E87.6 Hypokalemia; F41.9 Anxiety disorder, unspecified; G47.33 Obstructive sleep apnea (adult) (pediatric); I25.10 Atherosclerotic heart disease of native coronary artery without angina pectoris; K21.9 Gastro-esophageal reflux disease without esophagitis; N18.9 Chronic kidney disease, unspecified; Z60.2 Problems related to living alone; E11.42 Type 2 diabetes mellitus with diabetic polyneuropathy; R19.7 Diarrhea, unspecified; I48.91 Unspecified atrial fibrillation; Z90.710 Acquired absence of both cervix and uterus; Z95.0 Presence of cardiac pacemaker; Z99.81 Dependence on supplemental oxygen; Z90.49 Acquired absence of other specified parts of digestive tract; Z98.51 Tubal ligation status; Z88.0 Allergy status to penicillin; Z88.6 Allergy status to analgesic agent; Z88.8 Allergy status to other drugs, medicaments and biological substances; Z91.018 Allergy to other foods; Z79.890 Hormone replacement therapy; Z79.01 Long term (current) use of anticoagulants; Z79.84 Long term (current) use of oral hypoglycemic drugs; Z79.899 Other long term (current) drug therapy; Z87.891 Personal history of nicotine dependence
CPT/HCPCS: 36415; 36600; 71045; 80053; 81003; 82803; 82948; 83605; 83735; 83880; 84100; 84145; 84443; 84484; 85018; 85025; 85610; 85730; 87040; 87070; 87077; 87186; 93308; 94640; 94660; 94760; 96361; 96374; 96375; 97110; 97116; 97162; 99291; G0378; J0696; J1815; J1940; J1956; J2270; J2405; J2930; J3370; J3490; J7030; J7512